=== PATIENT | female | born 1990 | race Caucasian/White ===

== ENCOUNTER 2022-07-13 20:55 | Inpatient (IN) ==
[2022-07-13] MEDS ORDERED: SODIUM CHLORIDE 0.9% 1000ML 2,000 ML IV ONE (21:17)
--- NOTE | 2022-07-13 21:27 | Emergency Department Note ---
Impression & Plan New onset seizure, Hypokalemia ED Provider Note NAME: AUSTIN FULLER AGE: 32 SEX: F : 1990 ARRIVES VIA: Ambulance INFORMANT: Patient ED PROVIDER(S): Jesus Abernathy DO CHIEF COMPLAINT: seizure HPI: Patient is a 32-year-old female that presents to the ER following having a seizure which occurred 30 minutes ago. Earlier today per report from EMS the noted that she had some focal movements of her extremities. She had a tonic-clonic seizure for EMS. She was given 4 of Ativan. Following that she became postictal. She is intermittently moaning and moving her upper and lower extremities per EMS. She is nonfocal. Does have a previous history of drug abuse. History is limited secondary to the patient's mentation. PAST MEDICAL HISTORY:See Below PAST SURGICAL HISTORY:See Below FAMILY HISTORY:See Below SOCIAL HISTORY:See Below HOME MEDICATIONS:See Below ALLERGIES:See Below VITALS:See Below PHYSICAL EXAMINATION: GENERAL: Sitting up in bed, sleeping and opens eyes to sternal rub and says ow. EYE EXAM: normal conjunctiva. PERRL and EOM's intact. OROPHARYNX: no exudate, no erythema, lips, buccal mucosa, and tongue normal and mucous membranes are moist NECK: supple, no nuchal rigidity, no adenopathy, non-tender LUNGS: Clear to auscultation. Normal chest wall mechanics HEART: no murmurs, S1 normal and S2 normal ABDOMEN: abdomen soft, non-tender, normo-active bowel sounds, no masses, no rebound or guarding. UPPER EXTREMITIES: upper extremities are grossly normal. LOWER EXTREMITIES: No pitting edema. NEURO EXAM: Sleeping but opens eyes to sternal rub and screams at all. Moves all extremities. Nonfocal. MEDICAL DECISION MAKING: Patient is a 32-year-old female who presents ER for above-stated complaint. IV was established blood work was obtained. External records were reviewed from EMS. Labs show no significant leukocytosis or anemia. BMP with mild hypokalemia 3.4. LFTs bilirubin and lipase is unremarkable. hCG was negative. COVID-negative. Troponin negative. EKG was nondiagnostic. CT of the head showed no acute pathology. Patient was given 2 g of Keppra here. I discussed the case with Dr. York from neurology. As the patient had protracted seizure and some twitching of the arms previously we discussed the case with the hospitalist for further observation. I did update the at bedside. Obtain history from the as well. Patient resting comfortably while in the ER. Triage Nursing notes reviewed. Limited review of prior medical records performed Vital Signs: reviewed and remarkable for tachy Differential diagnosis: Differential diagnosis includes etiologies such as infection, hypoglycemia, electrolyte abnormalities, cardiac sources, intracerebral event, trauma, toxicologic, neurologic, as well as others were entertained. ER treatment provided: See below Diagnostics interpreted by me include EKG and cardiac monitoring as listed below: -Cardiac Monitoring: An order was placed for continuous cardiac monitoring. The monitor shows a rate of 101 with sinus rhythm. -ECG: Sinus rhythm rate 80 Normal axis No PVCs QTc 438 -Laboratory studies:Interpreted by me as stated above in MDM and shown below. Imaging studies: Xrays: As interpreted by me: Portable AP upright 1 view of the chest shows no pneumonia CTs show: CT head was negative Consultation(s): As described in MDM discussed with neurology and the hospitalist Dr. Blanca for further evaluation management treat Procedures:none Critical Care: None Past Med/Surg History Social History Smoking Status: Unknown if ever smoked Preferred Language: Mongolian Allergies Allergies Allergy/AdvReac Type Severity Reaction Status Date / Time No Known Allergies Allergy Unverified 07/13/22 23:06 Home Meds Home Medications Medication Instructions Recorded Confirmed Nausea Pill 0 mg PO DIRECTED PRN Nausea 07/13/22 07/13/22 cephalexin 250 mg tablet 0 mg PO TID 07/13/22 07/13/22 methocarbamol 500 mg tablet 0 mg PO DIRECTED PRN muscle 07/13/22 07/13/22 spasms Results & Data (ED) Vital Signs Vital Signs - 24 hr 07/13/22 21:03 07/13/22 20:45 07/13/22 20:45 Temperature Temperature Source Pulse Rate 109 H Respiratory Rate Respiratory Depth Respiratory Pattern Blood Pressure Blood Pressure Mean Pulse Oximetry 97 97 Oxygen Delivery Method Room Air Room Air Sepsis Recent Fever Within 48 Hours Sepsis New/Unexplained Change in Mental Status Sepsis Action Taken by Nursing 07/13/22 20:45 07/13/22 20:45 07/13/22 21:12 Temperature 37 C Temperature Source Axillary Pulse Rate 84 Respiratory Rate 34 H Respiratory Depth Shallow Respiratory Pattern Rapid/Shallow Blood Pressure 134/94 Blood Pressure Mean 107 Pulse Oximetry 100 98 98 Oxygen Delivery Method Room Air Room Air Room Air Sepsis Recent Fever Within 48 Hours No Sepsis New/Unexplained Change in Mental Status N/A Sepsis Action Taken by Nursing No Action Required 07/13/22 21:12 07/13/22 21:15 07/13/22 21:37 Temperature Temperature Source Pulse Rate 78 76 77 Respiratory Rate 22 25 H 22 Respiratory Depth Respiratory Pattern Blood Pressure 159/90 H 150/101 H Blood Pressure Mean 113 117 Pulse Oximetry 100 98 98 Oxygen Delivery Method Room Air Room Air Room Air Sepsis Recent Fever Within 48 Hours Sepsis New/Unexplained Change in Mental Status Sepsis Action Taken by Nursing 07/13/22 21:45 07/13/22 22:00 07/13/22 22:16 Temperature Temperature Source Pulse Rate 83 84 89 Respiratory Rate 24 16 17 Respiratory Depth Respiratory Pattern Blood Pressure 222/127 H 176/126 H 211/106 H Blood Pressure Mean 158 142 141 Pulse Oximetry 98 93 98 Oxygen Delivery Method Room Air Room Air Room Air Sepsis Recent Fever Within 48 Hours Sepsis New/Unexplained Change in Mental Status Sepsis Action Taken by Nursing 07/13/22 22:30 07/13/22 22:45 07/13/22 23:00 Temperature Temperature Source Pulse Rate 80 84 81 Respiratory Rate 14 19 17 Respiratory Depth Respiratory Pattern Blood Pressure 193/97 H 188/86 H 182/83 H Blood Pressure Mean 129 120 116 Pulse Oximetry 98 96 96 Oxygen Delivery Method Room Air Room Air Room Air Sepsis Recent Fever Within 48 Hours Sepsis New/Unexplained Change in Mental Status Sepsis Action Taken by Nursing 07/13/22 23:15 07/13/22 23:30 07/14/22 00:00 Temperature Temperature Source Pulse Rate 81 80 71 Respiratory Rate 18 12 15 Respiratory Depth Respiratory Pattern Blood Pressure 177/82 H 183/92 H Blood Pressure Mean 113 122 Pulse Oximetry 96 97 96 Oxygen Delivery Method Room Air Room Air Room Air Sepsis Recent Fever Within 48 Hours Sepsis New/Unexplained Change in Mental Status Sepsis Action Taken by Nursing 07/14/22 00:01 07/14/22 00:30 07/14/22 00:45 Temperature Temperature Source Pulse Rate 81 74 76 Respiratory Rate 20 8 L 14 Respiratory Depth Respiratory Pattern Blood Pressure 158/110 H 152/98 H 157/102 H Blood Pressure Mean 126 116 120 Pulse Oximetry 97 97 96 Oxygen Delivery Method Room Air Room Air Room Air Sepsis Recent Fever Within 48 Hours Sepsis New/Unexplained Change in Mental Status Sepsis Action Taken by Nursing Laboratory Data 07/13/22 21:06 07/13/22 21:06 Lab Results 07/13/22 07/13/22 07/13/22 Range/Units 21:06 21:06 21:06 WBC 6.80 (4.8-10.8) K/ul RBC 4.66 (4.20-5.40) M/uL Hgb 12.7 (12.0-16.0) g/dl Hct 38.2 (37.0-47.0) % MCV 82.0 (80.0-100.0) fL MCH 27.3 (25.0-34.0) pg MCHC 33.2 (32.0-36.0) g/dL RDW Std Deviation 39.9 (36.4-46.3) fL RDW Coeff of Quintin 13.4 (11.5-14.5) % Plt Count 264 (130-400) K/uL MPV 9.8 (9.4-12.4) fL Immature Gran % (Auto) 0.3 % Neut % (Auto) 61.8 % Lymph % (Auto) 28.7 % Meagher % (Auto) 7.8 % Eos % (Auto) 1.0 % Baso % (Auto) 0.4 % Neut # (Auto) 4.20 (1.40-6.50) K/uL Lymph # (Auto) 1.95 (1.2-3.4) K/uL Meagher # (Auto) 0.53 (0.11-0.59) K/uL Eos # (Auto) 0.07 (0-0.50) K/uL Baso # (Auto) 0.03 (0-0.2) K/uL Immature Gran # (Auto) 0.02 (0.01-0.20) K/uL Sodium 140 (136-145) mmol/L Potassium 3.4 L (3.5-5.1) mmol/L Chloride 108 H (98-107) mmol/L Carbon Dioxide 21 (21-32) mmol/L Anion Gap 11 (3-11) BUN 12 (6-23) mg/dl Creatinine 0.77 (0.6-1.2) mg/dl Est Cr Clr Drug Dosing Not Reportable Est GFR ( Amer) 120.1 ml/min Est GFR (Non-Af Amer) 103.6 ml/min BUN/Creatinine Ratio 15.6 (10-20) Glucose 103 H (70-99(Fasting)) mg/dl Calcium 9.9 (8.6-10.3) mg/dl Total Bilirubin 0.6 (0.2-1.0) mg/dl AST 14 (13-39) U/L ALT 11 (7-52) U/L Alkaline Phosphatase 60 (34-104) U/L Troponin I High Sens 3.7 (0-14) pg/ml Total Protein 7.7 (6.0-8.3) gm/dl Albumin 4.3 (3.4-5.0) gm/dl Globulin 3.4 (2.5-4.0) gm/dl Albumin/Globulin Ratio 1.3 (0.9-2) Lipase 24 (11-82) U/L HCG, Qual Negative (Negative) SARS-CoV-2, RNA, NAAT (NEGATIVE) 07/13/22 Range/Units 22:15 WBC (4.8-10.8) K/ul RBC (4.20-5.40) M/uL Hgb (12.0-16.0) g/dl Hct (37.0-47.0) % MCV (80.0-100.0) fL MCH (25.0-34.0) pg MCHC (32.0-36.0) g/dL RDW Std Deviation (36.4-46.3) fL RDW Coeff of Quintin (11.5-14.5) % Plt Count (130-400) K/uL MPV (9.4-12.4) fL Immature Gran % (Auto) % Neut % (Auto) % Lymph % (Auto) % Meagher % (Auto) % Eos % (Auto) % Baso % (Auto) % Neut # (Auto) (1.40-6.50) K/uL Lymph # (Auto) (1.2-3.4) K/uL Meagher # (Auto) (0.11-0.59) K/uL Eos # (Auto) (0-0.50) K/uL Baso # (Auto) (0-0.2) K/uL Immature Gran # (Auto) (0.01-0.20) K/uL Sodium (136-145) mmol/L Potassium (3.5-5.1) mmol/L Chloride (98-107) mmol/L Carbon Dioxide (21-32) mmol/L Anion Gap (3-11) BUN (6-23) mg/dl Creatinine (0.6-1.2) mg/dl Est Cr Clr Drug Dosing Est GFR ( Amer) ml/min Est GFR (Non-Af Amer) ml/min BUN/Creatinine Ratio (10-20) Glucose (70-99(Fasting)) mg/dl Calcium (8.6-10.3) mg/dl Total Bilirubin (0.2-1.0) mg/dl AST (13-39) U/L ALT (7-52) U/L Alkaline Phosphatase (34-104) U/L Troponin I High Sens (0-14) pg/ml Total Protein (6.0-8.3) gm/dl Albumin (3.4-5.0) gm/dl Globulin (2.5-4.0) gm/dl Albumin/Globulin Ratio (0.9-2) Lipase (11-82) U/L HCG, Qual (Negative) SARS-CoV-2, RNA, NAAT NEGATIVE (NEGATIVE) Administered Medications Discontinued Medications Levetiracetam 2,000 mg/ Sodium (Chloride) 270 mls @ 999 mls/hr IV NOW STA Stop: 07/13/22 21:33 Last Infusion: 07/13/22 22:16 Dose: 0 mls/hr Documented By: Admin: 07/13/22 21:58 Dose: 999 mls/hr Documented By: KRISH Sodium Chloride (Nss 1000ml) 2,000 mls @ 999 mls/hr IV .Q2H1M ONE Stop: 07/13/22 23:17 Last Infusion: 07/13/22 23:46 Dose: 0 mls/hr Documented By: Admin: 07/13/22 21:58 Dose: 999 mls/hr Documented By: KRISH Imaging Data Radiologist's Impression: Head CT 07/13/22 21:18 Exam(s): CT HEAD Without Contrast EXAM: CT Head Without Intravenous Contrast CLINICAL HISTORY: Reason for exam: seizure. TECHNIQUE: Axial computed tomography images of the head/brain without intravenous contrast. CTDI is 35.65 mGy and DLP is 703.85 mGy-cm. Automated exposure control was utilized for the study. A dose lowering technique was utilized adhering to the principles of ALARA. COMPARISON: No relevant prior studies available. FINDINGS: No acute intracranial hemorrhage. No midline shift or mass effect. The territorial mondragon-white matter differentiation is maintained throughout. The ventricles and sulci are commensurate with age. The visualized orbits appear grossly unremarkable. The calvarium is intact. The visualized paranasal sinuses and mastoid air cells are grossly clear. IMPRESSION: No acute intracranial hemorrhage, midline shift, or mass effect. Electronically signed by: Ezequiel Schafer MD 07/13/22 22:47 PM Discharge Plan Visit Data Chief Complaint: Seizure Stated Complaint: SEIZURES ED Provider: Jesus Abernathy Discharge Problem: New onset seizure, Hypokalemia Forms Stand Alone Forms: [facility] Prescriptions Prescriptions: No Action methocarbamol 500 mg Tablet 0 mg PO DIRECTED PRN (Reason: muscle spasms) cephalexin 250 mg Tablet 0 mg PO TID Nausea Pill 0 mg PO DIRECTED PRN (Reason: Nausea) Referrals Referrals: PCP,NO [Primary Care Provider] -
[2022-07-13 21:45] LABS: Basophils # (auto) 0.03 K/uL (0-0.2); Basophils % (auto) 0.4 %; Eosinophils # (auto) 0.07 K/uL (0-0.50); Hematocrit (blood only) 38.2 % (37.0-47.0); Hemoglobin 12.7 g/dl (12.0-16.0); Immature Granulocytes # (auto) 0.02 K/uL (0.01-0.20); Immature Granulocytes % (auto) 0.3 %; Lymphocytes # (auto) 1.95 K/uL (1.2-3.4); Lymphocytes % (auto) 28.7 %; Mean Corpuscular Hemoglobin 27.3 pg (25.0-34.0); Mean Corpuscular Hgb Conc 33.2 g/dL (32.0-36.0); Mean Platelet Volume 9.8 fL (9.4-12.4); Monocytes # (auto) 0.53 K/uL (0.11-0.59); Monocytes % (auto) 7.8 %; Neutrophils % (auto) 61.8 %; Platelet Count 264 K/uL (130-400); RDW Coefficient of Variation 13.4 % (11.5-14.5); RDW Standard Deviation 39.9 fL (36.4-46.3); Red Blood Count 4.66 M/uL (4.20-5.40)
[2022-07-13 21:47] LABS: Alanine Aminotransferase 11 U/L (7-52); Albumin Globulin Ratio 1.3 (0.9-2); Albumin Level 4.3 gm/dl (3.4-5.0); Alkaline Phosphatase 60 U/L (34-104); Anion Gap 11 (3-11); Aspartate Aminotransferase 14 U/L (13-39); BUN Creatinine Ratio 15.6 (10-20); Bilirubin,Total 0.6 mg/dl (0.2-1.0); Blood Urea Nitrogen 12 mg/dl (6-23); Calcium 9.9 mg/dl (8.6-10.3); Carbon Dioxide 21 mmol/L (21-32); Chloride 108 mmol/L (98-107); Est GFR (African American) 120.1 ml/min; Est GFR (Non-African American) 103.6 ml/min; Globulin 3.4 gm/dl (2.5-4.0); Glucose 103 mg/dl (70-99(Fasting)); Lipase 24 U/L (11-82); Potassium 3.4 mmol/L (3.5-5.1); Sodium 140 mmol/L (136-145); Total Protein 7.7 gm/dl (6.0-8.3)
[2022-07-13 21:53] LABS: Troponin I High Sensitivity 3.7 pg/ml (0-14)
[2022-07-13 22:04] LABS: Pregnancy Test, Serum Negative (Negative)
--- NOTE | 2022-07-13 22:48 | CT Scan Report ---
Exam(s): CT HEAD Without Contrast EXAM: CT Head Without Intravenous Contrast CLINICAL HISTORY: Reason for exam: seizure. TECHNIQUE: Axial computed tomography images of the head/brain without intravenous contrast. CTDI is 35.65 mGy and DLP is 703.85 mGy-cm. Automated exposure control was utilized for the study. A dose lowering technique was utilized adhering to the principles of ALARA. COMPARISON: No relevant prior studies available. FINDINGS: No acute intracranial hemorrhage. No midline shift or mass effect. The territorial mondragon-white matter differentiation is maintained throughout. The ventricles and sulci are commensurate with age. The visualized orbits appear grossly unremarkable. The calvarium is intact. The visualized paranasal sinuses and mastoid air cells are grossly clear. IMPRESSION: No acute intracranial hemorrhage, midline shift, or mass effect. Electronically signed by: Ezequiel Schafer MD 07/13/22 22:47 PM
[2022-07-14 03:35] LABS: Appearance Urine Clear (Clear); Bilirubin Urine Negative (Negative); Blood Urine Negative (Negative); Color Urine Yellow; Glucose Urine UA Negative (Negative); Ketones Urine Negative (Negative); Leukocyte Esterase Urine Negative (Negative); Nitrite Urine Negative (Negative); Protein Urine Negative (Negative); Specific Gravity Urine 1.012 (1.000-1.030); Urobilinogen Urine Negative (Negative)
[2022-07-14] MEDS ORDERED: ACETAMINOPHEN 325 MG TAB PO PRN (03:35)
[2022-07-14 05:35] LABS: Amphetamines+Metham, Urine Neg (Neg); Barbiturates, Urine Neg (Neg); Benzodiazepine, Urine Neg (Neg); Cocaine, Urine Neg (Neg); MDMA (Ecstacy), Urine Neg (Neg); Methadone, Urine Neg (Neg); Opiate, Urine Neg (Neg); Phencyclidine, Urine Neg (Neg)
--- NOTE | 2022-07-14 06:07 | History & Physical Report ---
Date of Service July 14, 2022 Assessment & Plan (1) New onset seizure: Plan: Patient brought into ED by EMS with tonic-clonic seizures. Patient was given 4 mg of Ativan by EMS with resolution of the seizures and the patient has been postictal since presentation. Patient arousable but somnolent and nonfocal on physical exam Neurology contacted from ED and patient given 2 g of Keppra IV based on neurology recommendation. Further dosing of anticonvulsants based on neurology consultation. Follow urine drug screen check TSH level (2) Hypokalemia: Plan: Patient found to have serum potassium of 3.4 in the ED. Replete potassium and recheck levels in a.m. (3) Drug abuse in remission: Plan: As per ED report and history obtained from , patient has history of drug abuse in the past but presently in remission. Obtain urine drug screen Admission and Anticipated Discharge Date Admission Date: July 14, 2022 History of Present Illness Chief Complaint: Patient presents to ED with complaints of seizures Primary Care Provider: NO PCP This is a 32-year-old female with past medical history significant for history of past drug abuse who presents to the emergency department brought in by EMS with complaints of tonic-clonic seizures. Patient was reported to that seizure episode by her and subsequently EMS was called and patient was noted to have a tonic-clonic seizure by EMS who gave her 4 mg of Ativan and patient had subsequently became postictal when she was brought to the ED for further evaluation. Patient at the time my evaluation is arousable but quickly drifts back to sleep. Based on the history obtained from her patient is not actively using drugs at this time. History is limited to chart review and 's input as patient is postictal and somnolent at this time. Neurology was contacted from ED and 2 g of Keppra was given to the patient for seizure prophylaxis. CT of the head was obtained that did not show any evidence of mass or midline shift. 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 Review of Systems Review of Systems: Review of system limited as patient is somnolent Patient presents with tonic-clonic seizures No chest pain or shortness of breath noted Physical Exam Physical Exam: Head and ENT no thyroid enlargement trachea midline Cardiovascular S1-S2 are normal no S3 Lungs bilateral air entry fair no wheezing Abdomen soft nondistended positive bowel sounds no rebound tenderness Extremity shows trace edema Neurologically patient's somnolent but arousable moves all 4 extremities Skin shows no rash no cyanosis Results & Data Results & Data Vital Signs (Past 12 Hours) Vital Signs Temp Pulse Resp BP BP Pulse Ox O2 Del Method 07/14/22 03:30 92 H 07/14/22 03:14 36.7 C 20 137/84 96 Room Air 07/14/22 03:13 36.7 C 15 137/84 97 Room Air 07/14/22 02:32 58 L 14 203/136 H 100 Room Air 07/14/22 02:30 59 L 15 100 Room Air 07/14/22 02:00 75 19 97 Room Air 07/14/22 01:30 62 15 98 07/14/22 01:16 67 14 188/155 H 99 Room Air 07/14/22 01:00 84 16 95 Room Air 07/14/22 01:05 68 07/14/22 00:45 76 14 157/102 H 96 Room Air 07/14/22 00:30 74 8 L 152/98 H 97 Room Air 07/14/22 00:01 81 20 158/110 H 97 Room Air 07/14/22 00:00 71 15 96 Room Air 07/13/22 23:30 80 12 183/92 H 97 Room Air 07/13/22 23:15 81 18 177/82 H 96 Room Air 07/13/22 23:00 81 17 182/83 H 96 Room Air 07/13/22 22:45 84 19 188/86 H 96 Room Air 07/13/22 22:30 80 14 193/97 H 98 Room Air 07/13/22 22:16 89 17 211/106 H 98 Room Air 07/13/22 22:00 84 16 176/126 H 93 Room Air 07/13/22 21:45 83 24 222/127 H 98 Room Air 07/13/22 21:37 77 22 98 Room Air 07/13/22 21:15 76 25 H 150/101 H 98 Room Air 07/13/22 21:12 78 22 159/90 H 100 Room Air 07/13/22 21:12 98 Room Air 07/13/22 20:45 98 Room Air 07/13/22 20:45 37 C 84 34 H 134/94 100 Room Air 07/13/22 20:45 97 Room Air 07/13/22 20:45 97 Room Air 07/13/22 21:03 109 H Laboratory Results Short CBC 07/13/22 Range/Units 21:06 WBC 6.80 (4.8-10.8) K/ul Hgb 12.7 (12.0-16.0) g/dl Hct 38.2 (37.0-47.0) % Plt Count 264 (130-400) K/uL BMP 07/13/22 21:06 Sodium 140 Potassium 3.4 L Chloride 108 H Carbon Dioxide 21 BUN 12 Creatinine 0.77 Glucose 103 H Calcium 9.9 Liver Function 07/13/22 Range/Units 21:06 Total Bilirubin 0.6 (0.2-1.0) mg/dl AST 14 (13-39) U/L ALT 11 (7-52) U/L Alkaline Phosphatase 60 (34-104) U/L Albumin 4.3 (3.4-5.0) gm/dl Urine 07/13/22 Range/Units 03:28 Urine Color Yellow Urine Appearance Clear (Clear) Urine pH 6.0 (4.5-7.5) Ur Specific Lovell 1.012 (1.000-1.030) Urine Protein Negative (Negative) Urine Glucose (UA) Negative (Negative) Diagnostic Findings Chest X-Ray 07/13/22 21:12 XR chest 1V portable HISTORY: 32 years-old Female Chest pain, nonspecific COMPARISON: None TECHNIQUE: AP view of the chest FINDINGS: Cardiomediastinal and hilar silhouettes are within normal limits. No pneumothorax, pleural effusion, airspace consolidation or pulmonary edema. Hypoinflation. Bones appear grossly intact. IMPRESSION: Hypoinflation without acute process of the chest. ACT 112: Negative or not required by law. The above report was generated using voice recognition software. It may contain grammatical, syntax or spelling errors. Electronically signed by: Wicho Schwab M.D. 07/14/2022 7:[address] 07/13/22 21:18 Exam(s): CT HEAD Without Contrast EXAM: CT Head Without Intravenous Contrast CLINICAL HISTORY: Reason for exam: seizure. TECHNIQUE: Axial computed tomography images of the head/brain without intravenous contrast. CTDI is 35.65 mGy and DLP is 703.85 mGy-cm. Automated exposure control was utilized for the study. A dose lowering technique was utilized adhering to the principles of ALARA. COMPARISON: No relevant prior studies available. FINDINGS: No acute intracranial hemorrhage. No midline shift or mass effect. The territorial mondragon-white matter differentiation is maintained throughout. The ventricles and sulci are commensurate with age. The visualized orbits appear grossly unremarkable. The calvarium is intact. The visualized paranasal sinuses and mastoid air cells are grossly clear. IMPRESSION: No acute intracranial hemorrhage, midline shift, or mass effect. Electronically signed by: Ezequiel Schafer MD 07/13/22 22:47 PM Code Status & VTE Plan VTE Prophylaxis Plan VTE Prophylaxis will be ordered: Yes PG Care Time/CCT Total # of Minutes Spent Total Time Spent with Patient: Total time spent is greater than 50% in coordination of care (as documented) at patient's floor/unit and/or counseling patient: Coding Level of Care Code None Diagnoses New onset seizure R56.9 Hypokalemia E87.6 Drug abuse in remission F19.11
--- NOTE | 2022-07-14 06:41 | Electrocardiogram Report ---
Test Reason : Blood Pressure : / mmHG Vent. Rate : 080 BPM Atrial Rate : 080 BPM P-R Int : 154 ms QRS Dur : 084 ms QT Int : 380 ms P-R-T Axes : 042 035 031 degrees QTc Int : 438 ms Normal sinus rhythm with sinus arrhythmia Normal ECG No previous ECGs available Confirmed by Saroj Lott ([id number]) on 07/14/2022 6:41:38 AM Referred By: REFERRED SELF Confirmed By:David Lott
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
--- NOTE | 2022-07-14 07:57 | XRay Report ---
XR chest 1V portable HISTORY: 32 years-old Female Chest pain, nonspecific COMPARISON: None TECHNIQUE: AP view of the chest FINDINGS: Cardiomediastinal and hilar silhouettes are within normal limits. No pneumothorax, pleural effusion, airspace consolidation or pulmonary edema. Hypoinflation. Bones appear grossly intact. IMPRESSION: Hypoinflation without acute process of the chest. ACT 112: Negative or not required by law. The above report was generated using voice recognition software. It may contain grammatical, syntax o r spelling errors. Electronically signed by: Wicho Schwab M.D. 07/14/2022 7:55 AM
[2022-07-14 09:00] LABS: Basophils # (auto) 0.03 K/uL (0-0.2); Basophils % (auto) 0.7 %; Eosinophils # (auto) 0.04 K/uL (0-0.50); Eosinophils % (auto) 0.9 %; Immature Granulocytes # (auto) 0.01 K/uL (0.01-0.20); Immature Granulocytes % (auto) 0.2 %; Lymphocytes # (auto) 1.37 K/uL (1.2-3.4); Lymphocytes % (auto) 31.8 %; Mean Corpuscular Hemoglobin 27.8 pg (25.0-34.0); Mean Corpuscular Hgb Conc 33.3 g/dL (32.0-36.0); Mean Corpuscular Volume 83.3 fL (80.0-100.0); Mean Platelet Volume 9.8 fL (9.4-12.4); Monocytes # (auto) 0.35 K/uL (0.11-0.59); Monocytes % (auto) 8.1 %; Neutrophils # (auto) 2.51 K/uL (1.40-6.50); Neutrophils % (auto) 58.3 %; Platelet Count 186 K/uL (130-400); RDW Coefficient of Variation 13.4 % (11.5-14.5); RDW Standard Deviation 40.8 fL (36.4-46.3); Red Blood Count 3.96 M/uL (4.20-5.40); White Blood Count 4.31 K/ul (4.8-10.8)
[2022-07-14 09:17] LABS: BUN Creatinine Ratio 14.5 (10-20); Calcium 8.5 mg/dl (8.6-10.3); Creatinine Clr Calc Pharmacy 160.9 ml/min; Est GFR (African American) 140.2 ml/min; Magnesium 1.9 mg/dl (1.7-2.4); Potassium 3.9 mmol/L (3.5-5.1)
[2022-07-14 09:17] LABS: BUN Creatinine Ratio 14.8 (10-20); Calcium 8.3 mg/dl (8.6-10.3); Creatinine Clr Calc Pharmacy 163.6 ml/min; Est GFR (Non-African American) 121.7 ml/min; Potassium 3.9 mmol/L (3.5-5.1)
--- NOTE | 2022-07-14 10:19 | Neurology Consultation ---
Date of Consultation July 14, 2022 Assessment & Plan (1) New onset seizure: New onset seizure disorder in the setting of recent infection and a history of febrile seizures. 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 Agree with Keppra 500mg BID and outpatient seizure wor kup including EEG and MRI with and without contrast (seizure protocol). She will need close epilepsy follow-up. -- Keppra 500mg BID -- [place] DOT form for driving restriction -- Outpatient routine EEG and MRI brain with and without contrast (seizure protocol) -- Please contact us with any further questions, she will need neuro referral for the next week if possible Telehealth Consultation Telehealth Information Telehealth Information: I performed this visit using a real-time telehealth connection between my location and the patients location ([facility]). After connecting through interactive tele-video, patient was identified by name and date of and/or wristband check.Patient (or authorized healthcare sales representative jewelry) was informed that this was a telemedicine visit and it was being conducted confidentially over secure lines. My office door was closed and no one else was present in the room with me.Patient (or authorized healthcare sales representative jewelry) provided consent to proceed with the visit, expressed an understanding of privacy and security of the telemedicine visit, and gave permission to have a hospital sales representative jewelry in the room in order to assist with the visit and to conduct portions of the visit, as needed. I informed the patient (or authorized healthcare sales representative jewelry) that I reviewed their record and presented the opportunity for them to ask any questions regarding the visit today. The patient agreed to participate. History of Present Illness Reason for Consultation: New onset seizure Requesting Physician: Dr. Wilkinson Attending Physician: Sarah Wilkinson MD History of Present Illness Estephania Alexander is a 32 yo F presenting with a generalized tonic-clonic seizure s/p 4mg ativan and keppra load. She has been difficult to wake up this morning but was awake during my encounter. She reports that she was seen for infection - both a UTI and mouth abscess a week and half ago, and has been on antibiotics as well as anti-nausea medication and muscle relaxants (methocarbamol). Two days ago she reports having a seizure and another yesterday. She describes a gastric sensation before the seizure and has otherwise no recollection of the event. She also reports febrile seizures in childhood but was never on seizure medication in the past. Denies any current drug use. Overall complains primarily of generalized muscle pain and fatigue and a frontal headache. Allergies Allergy/AdvReac Type Severity Reaction Status Date / Time No Known Allergies Allergy Unverified 07/13/22 23:06 Home Medications Medication Instructions Recorded Confirmed Type Nausea Pill 0 mg PO DIRECTED PRN Nausea 07/13/22 07/13/22 History cephalexin 250 mg tablet 0 mg PO TID 07/13/22 07/13/22 History methocarbamol 500 mg tablet 0 mg PO DIRECTED PRN muscle 07/13/22 07/13/22 History spasms Patient History Social History Smoking Status: Unknown if ever smoked Preferred Language: Zambian [employer] Supervisor Required: No Review of Systems +seizure Results & Data Vital Signs (Past 12 Hours) Vital Signs Temp Pulse Pulse Resp BP BP Pulse Ox 07/14/22 07:07 36.7 C 68 18 124/79 98 07/14/22 06:36 36.5 C 62 12 105/61 97 07/14/22 03:30 92 H 07/14/22 03:14 36.7 C 20 137/84 96 07/14/22 03:13 36.7 C 15 137/84 97 07/14/22 02:32 58 L 14 203/136 H 100 07/14/22 02:30 59 L 15 100 07/14/22 02:00 75 19 97 07/14/22 01:30 62 15 98 07/14/22 01:16 67 14 188/155 H 99 07/14/22 01:00 84 16 95 07/14/22 01:05 68 07/14/22 00:45 76 14 157/102 H 96 07/14/22 00:30 74 8 L 152/98 H 97 07/14/22 00:01 81 20 158/110 H 97 07/14/22 00:00 71 15 96 07/13/22 23:30 80 12 183/92 H 97 07/13/22 23:15 81 18 177/82 H 96 07/13/22 23:00 81 17 182/83 H 96 07/13/22 22:45 84 19 188/86 H 96 07/13/22 22:30 80 14 193/97 H 98 07/13/22 22:16 89 17 211/106 H 98 O2 Del Method 07/14/22 07:07 Room Air 07/14/22 06:36 Room Air 07/14/22 03:30 07/14/22 03:14 Room Air 07/14/22 03:13 Room Air 07/14/22 02:32 Room Air 07/14/22 02:30 Room Air 07/14/22 02:00 Room Air 07/14/22 01:30 07/14/22 01:16 Room Air 07/14/22 01:00 Room Air 07/14/22 01:05 07/14/22 00:45 Room Air 07/14/22 00:30 Room Air 07/14/22 00:01 Room Air 07/14/22 00:00 Room Air 07/13/22 23:30 Room Air 07/13/22 23:15 Room Air 07/13/22 23:00 Room Air 07/13/22 22:45 Room Air 07/13/22 22:30 Room Air 07/13/22 22:16 Room Air Laboratory Results Abnormal lab results 07/13/22 07/13/22 07/14/22 Range/Units 03:28 21:06 08:20 WBC 4.31 L (4.8-10.8) K/ul RBC 3.96 L (4.20-5.40) M/uL Hgb 11.0 L (12.0-16.0) g/dl Hct 33.0 L (37.0-47.0) % Potassium 3.4 L (3.5-5.1) mmol/L Chloride 108 H (98-107) mmol/L Glucose 103 H (70-99(Fasting)) mg/dl Calcium (8.6-10.3) mg/dl U Marijuana (THC) Screen Pos H (Neg) 07/14/22 07/14/22 Range/Units 08:20 08:36 WBC (4.8-10.8) K/ul RBC (4.20-5.40) M/uL Hgb (12.0-16.0) g/dl Hct (37.0-47.0) % Potassium (3.5-5.1) mmol/L Chloride 113 H 113 H (98-107) mmol/L Glucose (70-99(Fasting)) mg/dl Calcium 8.5 L 8.3 L (8.6-10.3) mg/dl U Marijuana (THC) Screen (Neg) Diagnostic Findings CT head - unremarkable
[2022-07-14] MEDS ORDERED: levETIRAcetam 500 MG TAB PO SCH (10:45)
[2022-07-14] MEDS: HEPARIN SOD 5,000 UNIT/0.5 ML VIAL SQ SCH ×2 (15:15→20:33)
[2022-07-14] MEDS ORDERED: ONDANSETRON INJ 2 MG/ML 2 ML VIAL IV STA (15:20)
[2022-07-14] MEDS ORDERED: ACETAMINOPHEN 1,000 MG/100 ML VIAL IV STA (15:22)
--- NOTE | 2022-07-14 15:57 | Electrocardiogram Report ---
Test Reason : Blood Pressure : / mmHG Vent. Rate : 063 BPM Atrial Rate : 063 BPM P-R Int : 164 ms QRS Dur : 078 ms QT Int : 444 ms P-R-T Axes : 046 041 048 degrees QTc Int : 454 ms Normal sinus rhythm Normal ECG When compared with ECG of 13-JUL-2022 21:08, No significant change was found Confirmed by Saroj Lott ([id number]) on 07/14/2022 3:57:33 PM Referred By: REFERRED SELF Confirmed By:David Lott
[2022-07-14] MEDS: levETIRAcetam 500 MG in 0.9 % SODIUM CHLORIDE 100 ML IV SCH (16:02)
--- NOTE | 2022-07-14 17:11 | Communication Note ---
Date of Service: July 14, 2022 Neurology Update Was called to see Estephania by the primary team because she began having chest thrusting and grunting episodes that seem to stop with repositioning and reassurance. I was able to see these episodes over televideo and agree they are consistent with psychogenic spasms, not seizure. This specifically calls into question whether or not the episodes that brought her to the hospital were seizures or psychogenic non-epileptic attacks. As she is unable to be discharged in this state, I advised a routine EEG. I would not give any further ativan for these spells. If we can capture psychogenic episodes on EEG because they are so frequent, then we can discharge her without keppra and provide the appropriate psychiatric follow-up.
[2022-07-14 17:17] LABS: Base Excess VBG -0.1 mEq/L; HCO3 VBG 24 mmol/L; Oxygen Saturation VBG 93.2 %; PCO2 VBG 36 mmHg (38-50); PO2 VBG 62 mmHg; pH VBG 7.43 (7.36-7.41)
[2022-07-14] MEDS: ACETAMINOPHEN 1,000 MG/100 ML VIAL IV PRN (23:19)
[2022-07-15] MEDS: levETIRAcetam 500 MG in 0.9 % SODIUM CHLORIDE 100 ML IV SCH (04:14)
[2022-07-15 07:05] LABS: Basophils # (auto) 0.04 K/uL (0-0.2); Basophils % (auto) 0.8 %; Eosinophils # (auto) 0.08 K/uL (0-0.50); Eosinophils % (auto) 1.6 %; Hematocrit (blood only) 36.2 % (37.0-47.0); Hemoglobin 11.7 g/dl (12.0-16.0); Immature Granulocytes # (auto) 0.02 K/uL (0.01-0.20); Immature Granulocytes % (auto) 0.4 %; Lymphocytes # (auto) 1.76 K/uL (1.2-3.4); Lymphocytes % (auto) 34.6 %; Mean Corpuscular Hgb Conc 32.3 g/dL (32.0-36.0); Mean Corpuscular Volume 83.6 fL (80.0-100.0); Mean Platelet Volume 9.8 fL (9.4-12.4); Monocytes # (auto) 0.45 K/uL (0.11-0.59); Monocytes % (auto) 8.8 %; Neutrophils # (auto) 2.74 K/uL (1.40-6.50); Neutrophils % (auto) 53.8 %; Platelet Count 211 K/uL (130-400); RDW Coefficient of Variation 13.2 % (11.5-14.5); RDW Standard Deviation 39.8 fL (36.4-46.3); Red Blood Count 4.33 M/uL (4.20-5.40); White Blood Count 5.09 K/ul (4.8-10.8)
[2022-07-15 07:23] LABS: BUN Creatinine Ratio 12.5 (10-20); Calcium 8.9 mg/dl (8.6-10.3); Creatinine Clr Calc Pharmacy 136.5 ml/min; Est GFR (African American) 130.2 ml/min; Est GFR (Non-African American) 112.4 ml/min; Potassium 3.6 mmol/L (3.5-5.1)
--- NOTE | 2022-07-15 08:07 | Hospitalist Progress Note ---
Date of Service July 15, 2022 Assessment & Plan (1) New onset seizure: (2) Hypokalemia: Plan Estephania Alexander is a 32 year-old female who presented to the ED for a new onset seizure. She was given 4mg IM Ativan from EMS prior to arrival. reports that she had been more tired/not feeling like herself for the past week and had been on Cephalexin for a cyst in her mouth. Last night she started to shiver and speech became slurred/balance worsened and then she started to seize around 6:30pm and this continued on and off until 11pm when EMS was called. She received 4mg IV Ativan from EMS and was given loading dose of Keppra in ED. 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 Previously on Latuda, prior suicide attempts. 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 -Pt had been taking Keflex for mouth abscess. Could consider infection as possible trigger/lowered seizure threshold -However no WBC, HR stable, BP normotensive -ProCal, CRP negative -Electrolytes, magnesium WNL. Will trend daily BMP, CBC Altered Mental Status -Per , patient has had ongoing difficulty with memory, speech, balance since her TBI -Patient today is very somnolent, now 16+ hours since onset of seizure -UDS only positive for marijuana/THC. Remote hx of drug use. -Given AMS, will keep patient NPO until more alert. Ordered speech evaluation. Urinary Retention -Bladder scan showed 1000mL -Gutierrez catheter inserted overnight Diet: NPO VTE Prophylaxis: subQ Heparin Code Status: Full Code Admission and Anticipated Discharge Date Admission Date: July 14, 2022 Review of Systems Review of Systems: As per above Physical Exam Constitutional: + altered mental status and + lethargic Respiratory: normal respiratory effort; no respiratory distress Cardiovascular: Rate/Rhythm: regular rate and regular rhythm Extremities: no edema Musculoskeletal: Extremities: extremities normal to inspection Skin: no rashes, warm and dry Neurologic: moves all extremities Speech / Cognition: + abnormal speech Psychiatric: Eye Contact: + poor eye contact Affect: + flat affect Results & Data Results & Data Vital Signs (Past 12 Hours) Vital Signs Temp Pulse Pulse Resp BP BP Pulse Ox 07/15/22 07:11 36.6 C 51 L 20 99/62 L 97 07/15/22 03:17 36.4 C L 56 L 14 130/82 97 07/14/22 23:00 77 07/14/22 23:10 36.6 C 87 18 124/84 97 O2 Del Method 07/15/22 07:11 Room Air 07/15/22 03:17 Room Air 07/14/22 23:00 07/14/22 23:10 Room Air Resident Activity Tracking Resident Involvement: Resident Care Provided Care Provided: Adult Hospital Medicine
[2022-07-15] MEDS: HEPARIN SOD 5,000 UNIT/0.5 ML VIAL SQ SCH (09:17)
[2022-07-15] MEDS: ACETAMINOPHEN 1,000 MG/100 ML VIAL IV PRN (11:25)
--- NOTE | 2022-07-15 12:12 | Electroencephalogram ---
EEG Procedure Note Date of Service July 15, 2022 Start / End Times Start Time: 09:14 End Time: 09:[address] Wayne Hooper History A 32 year old female with convulsive episodes. EEG performed for evaluation of epileptifor activity. Home Medication List Medication Instructions Recorded Confirmed Type Nausea Pill 0 mg PO DIRECTED PRN Nausea 07/13/22 07/13/22 History cephalexin 250 mg tablet 0 mg PO TID 07/13/22 07/13/22 History methocarbamol 500 mg tablet 0 mg PO DIRECTED PRN muscle 07/13/22 07/13/22 History spasms Inpatient Medication List Heparin Sodium (Porcine) (Heparin Sod 5,000 Unit/0.5 Ml Vial) 5,000 units SQ Q12 ULICES Stop: 08/13/22 08:59 Last Admin: 07/15/22 09:17 Dose: Not Given Documented By: Admin: 07/14/22 20:33 Dose: Not Given Documented By: Admin: 07/14/22 15:15 Dose: Not Given Documented By: WILBER Levetiracetam 500 mg/ Sodium (Chloride) 105 mls @ 420 mls/hr IV Q12H ULICES Stop: 08/13/22 15:59 Last Infusion: 07/15/22 04:34 Dose: 0 mls/hr Documented By: Admin: 07/15/22 04:14 Dose: 420 mls/hr Documented By: Infusion: 07/14/22 16:17 Dose: 0 mls/hr Documented By: Admin: 07/14/22 16:02 Dose: 420 mls/hr Documented By: ZULEYMA Acetaminophen (Ofirmev) 1,000 mg in 100 mls @ 400 mls/hr IV Q8H PRN PRN Reason: Pain Stop: 07/17/22 22:54 Last Admin: 07/15/22 11:25 Dose: 400 mls/hr Documented By: Infusion: 07/14/22 23:36 Dose: 0 mls/hr Documented By: Admin: 07/14/22 23:19 Dose: 400 mls/hr Documented By: ABA Discontinued Medications Levetiracetam 2,000 mg/ Sodium (Chloride) 270 mls @ 999 mls/hr IV NOW STA Stop: 07/13/22 21:33 Last Infusion: 07/13/22 22:16 Dose: 0 mls/hr Documented By: Admin: 07/13/22 21:58 Dose: 999 mls/hr Documented By: KRISH Sodium Chloride (Nss 1000ml) 2,000 mls @ 999 mls/hr IV .Q2H1M ONE Stop: 07/13/22 23:17 Last Infusion: 07/13/22 23:46 Dose: 0 mls/hr Documented By: Admin: 07/13/22 21:58 Dose: 999 mls/hr Documented By: KRISH Acetaminophen (Ofirmev) 1,000 mg in 100 mls @ 400 mls/hr IV NOW STA Stop: 07/14/22 15:36 Last Infusion: 07/14/22 17:02 Dose: 0 mls/hr Documented By: Admin: 07/14/22 16:47 Dose: 400 mls/hr Documented By: WILBER Levetiracetam (Levetiracetam 500 Mg Tab) 500 mg PO BID ULICES Stop: 08/13/22 10:44 Last Admin: 07/14/22 15:16 Dose: Not Given Documented By: WILBER Ondansetron HCl (Ondansetron Inj 2 Mg/Ml 2 Ml Vial) 4 mg IV NOW STA Stop: 07/14/22 15:21 Last Admin: 07/14/22 16:47 Dose: 4 mg Documented By: WILBER Description This is a 21 electrode EEG with a single channel dedicated to limited EKG. The electrodes were placed in accordance with the International 10-20 system. REPORT: At the onset of the EEG the patient is in an altered mental state. The background is symmetric. The posterior dominant rhythm is not well seen. The background consist of low amplitude 12-15 Hz beta acivity with some intermixed polymorphic delta activity. No stage II sleep transients are seen. Interpretation IMPRESSION: This is an abnormal routine EEG in a patient with altered mentation due to intermittnet background slowing suggestive of a mild non specific encephalopathy. This may also be medication induced. The excessive beta actvity is a normal variant often secondary to medications ( ie benzodiazepines). No epileptiform activity or electrographic seizures are seen.
--- NOTE | 2022-07-15 12:32 | Communication Note ---
Date of Service: July 15, 2022 Neurology Update: With a negative EEG (excess beta as a lingering effect of ativan), not indicative of underlying electrographic abnormality or cortical irritiability and no abnormal movements captured would err on the side of caution and continue Keppra 500mg BID until seen by neurology as an outpatient. We will sign off, please contact us with any further questions.
[2022-07-15] MEDS ORDERED: KETOROLAC 30 MG/ML VIAL IV ONE (14:10)
--- NOTE | 2022-07-15 16:08 | Discharge Summary ---
Date of Service July 15, 2022 Admission HPI Per Admitting Provider This is a 32-year-old female with past medical history significant for history of past drug abuse who presents to the emergency department brought in by EMS with complaints of tonic-clonic seizures. Patient was reported to that seizure episode by her and subsequently EMS was called and patient was noted to have a tonic-clonic seizure by EMS who gave her 4 mg of Ativan and patient had subsequently became postictal when she was brought to the ED for further evaluation. Patient at the time my evaluation is arousable but quickly drifts back to sleep. Based on the history obtained from her patient is not actively using drugs at this time. History is limited to chart review and 's input as patient is postictal and somnolent at this time. Neurology was contacted from ED and 2 g of Keppra was given to the patient for seizure prophylaxis. CT of the head was obtained that did not show any evidence of mass or midline shift. Admission Exam Per Admitting Provider Head and ENT no thyroid enlargement trachea midline Cardiovascular S1-S2 are normal no S3 Lungs bilateral air entry fair no wheezing Abdomen soft nondistended positive bowel sounds no rebound tenderness Extremity shows trace edema Neurologically patient's somnolent but arousable moves all 4 extremities Skin shows no rash no cyanosis Principal Diagnosis Seizure-Like Activity Discharge Exam Constitutional WD/WN, vitals as above Eyes Anicteric sclerae. Pupils equal, round, and reactive. ENMT External ears and nose normal. Moist mucous membranes. Poor dentition Respiratory normal respiratory effort, lungs clear to auscultation Cardiovascular RRR, no murmur, no edema Gastrointestinal (Abdomen) normal bowel sounds, soft, nontender, no hepatosplenomegaly Skin no rashes, warm and dry Psychiatric A+Ox3, euthymic affect Discharge Data Allergies Allergy/AdvReac Type Severity Reaction Status Date / Time No Known Allergies Allergy Unverified 07/13/22 23:06 Consultations 07/13/22 22:59 ED Decision to Admit Stat 07/14/22 08:29 Consult Neurology Routine Ordered Studies 07/13/22 21:18 CT head/brain wo con Stat Chest X-Ray 07/13/22 21:12 XR chest 1V portable HISTORY: 32 years-old Female Chest pain, nonspecific COMPARISON: None TECHNIQUE: AP view of the chest FINDINGS: Cardiomediastinal and hilar silhouettes are within normal limits. No pneumothorax, pleural effusion, airspace consolidation or pulmonary edema. Hypoinflation. Bones appear grossly intact. IMPRESSION: Hypoinflation without acute process of the chest. ACT 112: Negative or not required by law. The above report was generated using voice recognition software. It may contain grammatical, syntax or spelling errors. Electronically signed by: Wicho Schwab M.D. 07/14/2022 7:[address] 07/13/22 21:18 Exam(s): CT HEAD Without Contrast EXAM: CT Head Without Intravenous Contrast CLINICAL HISTORY: Reason for exam: seizure. TECHNIQUE: Axial computed tomography images of the head/brain without intravenous contrast. CTDI is 35.65 mGy and DLP is 703.85 mGy-cm. Automated exposure control was utilized for the study. A dose lowering technique was utilized adhering to the principles of ALARA. COMPARISON: No relevant prior studies available. FINDINGS: No acute intracranial hemorrhage. No midline shift or mass effect. The territorial mondragon-white matter differentiation is maintained throughout. The ventricles and sulci are commensurate with age. The visualized orbits appear grossly unremarkable. The calvarium is intact. The visualized paranasal sinuses and mastoid air cells are grossly clear. IMPRESSION: No acute intracranial hemorrhage, midline shift, or mass effect. Electronically signed by: Ezequiel Schafer MD 07/13/22 22:47 PM 07/15/22 07/15/22 07/14/22 Range/Units 06:32 06:32 17:30 WBC 5.09 (4.8-10.8) K/ul RBC 4.33 (4.20-5.40) M/uL Hgb 11.7 L (12.0-16.0) g/dl Hct 36.2 L (37.0-47.0) % MCV 83.6 (80.0-100.0) fL MCH 27.0 (25.0-34.0) pg MCHC 32.3 (32.0-36.0) g/dL RDW Std Deviation 39.8 (36.4-46.3) fL RDW Coeff of Quintin 13.2 (11.5-14.5) % Plt Count 211 (130-400) K/uL MPV 9.8 (9.4-12.4) fL Immature Gran % (Auto) 0.4 % Neut % (Auto) 53.8 % Lymph % (Auto) 34.6 % [place] % (Auto) 8.8 % Eos % (Auto) 1.6 % Baso % (Auto) 0.8 % Neut # (Auto) 2.74 (1.40-6.50) K/uL Lymph # (Auto) 1.76 (1.2-3.4) K/uL [place] # (Auto) 0.45 (0.11-0.59) K/uL Eos # (Auto) 0.08 (0-0.50) K/uL Baso # (Auto) 0.04 (0-0.2) K/uL Immature Gran # (Auto) 0.02 (0.01-0.20) K/uL VBG pH (7.36-7.41) VBG pCO2 (38-50) mmHg VBG pO2 mmHg VBG HCO3 mmol/L VBG O2 Saturation % VBG Base Excess mEq/L Sodium 140 (136-145) mmol/L Potassium 3.6 (3.5-5.1) mmol/L Chloride 108 H (98-107) mmol/L Carbon Dioxide 26 (21-32) mmol/L Anion Gap 6 (3-11) BUN 9 (6-23) mg/dl Creatinine 0.72 (0.6-1.2) mg/dl Est Cr Clr Drug Dosing 136.5 ml/min Est GFR ( Amer) 130.2 ml/min Est GFR (Non-Af Amer) 112.4 ml/min BUN/Creatinine Ratio 12.5 (10-20) Glucose 80 (70-99(Fasting)) mg/dl Lactate 0.8 (0.4-2.0) mmol/L Calcium 8.9 (8.6-10.3) mg/dl Prolactin ng/ml 07/14/22 07/14/22 Range/Units 17:30 17:09 WBC (4.8-10.8) K/ul RBC (4.20-5.40) M/uL Hgb (12.0-16.0) g/dl Hct (37.0-47.0) % MCV (80.0-100.0) fL MCH (25.0-34.0) pg MCHC (32.0-36.0) g/dL RDW Std Deviation (36.4-46.3) fL RDW Coeff of Quintin (11.5-14.5) % Plt Count (130-400) K/uL MPV (9.4-12.4) fL Immature Gran % (Auto) % Neut % (Auto) % Lymph % (Auto) % [place] % (Auto) % Eos % (Auto) % Baso % (Auto) % Neut # (Auto) (1.40-6.50) K/uL Lymph # (Auto) (1.2-3.4) K/uL [place] # (Auto) (0.11-0.59) K/uL Eos # (Auto) (0-0.50) K/uL Baso # (Auto) (0-0.2) K/uL Immature Gran # (Auto) (0.01-0.20) K/uL VBG pH 7.43 H (7.36-7.41) VBG pCO2 36 L (38-50) mmHg VBG pO2 62 mmHg VBG HCO3 24 mmol/L VBG O2 Saturation 93.2 % VBG Base Excess -0.1 mEq/L Sodium (136-145) mmol/L Potassium (3.5-5.1) mmol/L Chloride (98-107) mmol/L Carbon Dioxide (21-32) mmol/L Anion Gap (3-11) BUN (6-23) mg/dl Creatinine (0.6-1.2) mg/dl Est Cr Clr Drug Dosing ml/min Est GFR ( Amer) ml/min Est GFR (Non-Af Amer) ml/min BUN/Creatinine Ratio (10-20) Glucose (70-99(Fasting)) mg/dl Lactate (0.4-2.0) mmol/L Calcium (8.6-10.3) mg/dl Prolactin 9.82 ng/ml Hospital Course (1) New onset seizure: (2) Hypokalemia: Guille Estephania Alexander is a 32 year-old female who presented to the ED for a new onset seizure. She was given 4mg IM Ativan from EMS prior to arrival. reports that she had been more tired/not feeling like herself for the past week and had been on Cephalexin for a cyst in her mouth. Last night she started to shiver and speech became slurred/balance worsened and then she started to seize around 6:30pm and this continued on and off until 11pm when EMS was called. She received 4mg IV Ativan from EMS and was given loading dose of Keppra in ED. 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 Previously on Latuda, prior suicide attempts. -Head CT w/o acute abnormalities, midline shift, or mass effect -Neurology consulted. After additional episodes of upper extremity shaking/jerking, Neurologist watched on camera, feels episodes are possibly psychogenic in nature but will continue Keppra for now. -EEG completed, no episodes captured. Study unremarkable for diagnosis of epileptic seizures. -Plan to continue Keppra 500 BID -Outpatient follow up with neurology within 1 week. Consider MRI brain imaging. Recommend follow up with psychiatry to address underlying PTSD. 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 Per , her current license is out of [place]. -Informed patient she should not be operating any motor vehicles. Altered Mental Status -Per , patient has had ongoing difficulty with memory, speech, balance since her TBI -UDS only positive for marijuana/THC. Remote hx of drug use. -Mentation clear on discharge Migraine -Notes history of migraine, previously on Imitrex -Gave IV Toradol. Advised patient to follow up with PCP, use ibuprofen/tylenol as needed Poor dentition -Should have outpatient dental follow up. Total Time Total Time Spent Total Time Spent (In Minutes): . Discharge Plan Discharge Items Patient Disposition: Home - Self-Care Reason For Visit: NEW ONSET SEIZURE Discharge Diagnosis: Possible New Onset Seizure Activity: Per Instructions section Non-emergency contact: Primary Care Provider and Neurologist Call non-emergency contact if: you have any medication questions and your symptoms worsen Follow-up/Referrals: Molina Hamlin, DO [Physician] - (One week follow up with any provider- seen for possible seizure, started on keppra) PCP,NO [Primary Care Provider] - Diet: Regular Addtl Attending Provider Instructions: You were admitted to the hospital for seizure activity. You were treated with Ativan by EMS on transport to the hospital and started on Keppra while in the ED. You were continued on Keppra during your admission. Neurology was consulted and advised to continue the Keppra medication and follow up with a neurologist within one week of discharge. The neurologist was able to view the episodes of upper body jerking and did not feel that they were additional seizures. An EEG was completed which did not show definitive abnormalities suggesting seizure activity. The neurologist expressed concern that these events may not be epileptic in nature, but for now we will prescribe Keppra. You should follow up with neurology within 1 week. We have reached out to a local neurology ([facility]) to request an appointment, but if you are planning to return to [place] it is very important that you call a local neurologist to request an appointment within the next week. We also recommend that you continue to seek care for PTSD after your TBI from mental health care providers. -It is very important that you do not drive any vehicles given the recent seizure. I will be submitting a form to the [facility] regarding concern of your ability to operate a motor vehicle. Follow-up Appointments Make a follow-up appointment with your PCP within the next week. It is very important that you follow up with them shortly after discharge from the hospital. We have requested a follow-up appointment with neurology within one week of discharge. Please call their office if you do not hear from them. Medications Your medication list has been reviewed and reconciled upon discharge to ensure accuracy and continuity of care. An updated list of all your medications is included with your hospital discharge paperwork. Please review this list closely, and make note of any changes. We sent a new medication called Keppra to your pharmacy. Take Keppra 500mg (1 tablet) twice daily. Continue this medication until instructed otherwise by a neurologist. For your migraine headache you received IV Toradol. You were previously on Imitrex but given your possible seizure it would not be recommended to restart this medication at this time. Please discuss this with your neurologist. We recommend taking [id number] ibuprofen or tylenol. CALL 911 OR GO TO THE EMERGENCY DEPARTMENT if you experience any of the following: Sudden, severe abdominal pain or nausea/vomiting Severe chest pain, or chest pain that radiates (moves) to your jaw or arm Sudden, severe shortness of breath or difficulty breathing Thank you for allowing us to participate in your care. Pending Studies at Discharge: No Stand-Alone Forms: My [facility] [employer], Smoking Cessation Medications and DC Order Prescriptions: New levetiracetam [Keppra] 500 mg tablet 500 mg PO BID 14 Days Qty: 28 1RF Discontinued methocarbamol 500 mg Tablet 0 mg PO DIRECTED PRN (Reason: muscle spasms) cephalexin 250 mg Tablet 0 mg PO TID Nausea Pill 0 mg PO DIRECTED PRN (Reason: Nausea) Discharge Orders: Discharge Order (Routine); Ordered 07/15/22 Ordered By: Bel Robles Admission Data Admit Date/Time: 07/14/22 01:24 Attending Provider: Sarah Wilkinson Admit Provider: Markus Grewal Primary Care Provider: PCP,NO Other Providers: Markus Grewal Other Interventions: Discharge Summary Assessment (RN) Last Done: 07/15/22 16:10 Supervising Physician Co-Signing Physician Notes Resident Physician Supervision Note: I independently interviewed and examined the patient and verified the pinon history and physical, reviewed labs and image studies and agree with resident findings and care plan. Resident Activity Tracking Resident Involvement: Resident Care Provided Care Provided: Adult Hospital Medicine
[2022-07-16 14:22] LABS: Marijuana Quant, GCMS Urine 397 ng/mL (<5)
== END 2022-07-15 16:30 | disposition home or self-care (01) | DRG 101 ==
LOC: ED 20:55 → SUATTDRO 07-14 01:24 → 2S 07-14 01:24

== ENCOUNTER 2022-09-02 20:22 | Observation (INO) ==
[2022-09-02] MEDS ORDERED: SODIUM CHLORIDE 0.9% 2,000 ML IV ONE (20:28)
[2022-09-02] MEDS ORDERED: LORazepam 2 MG/1 ML VIAL ONE (20:33)
[2022-09-02] MEDS ORDERED: LEVETIRACETAM IV STA (20:34)
[2022-09-02] MEDS ORDERED: LORazepam 2 MG/1 ML VIAL IV STA (20:34)
[2022-09-02] MEDS ORDERED: SODIUM CHLORIDE 0.9% IV STA (20:34)
--- NOTE | 2022-09-02 20:47 | Emergency Department Note ---
Impression & Plan Status epilepticus, Hypokalemia, Drug abuse in remission ED Provider Note NAME: AUSTIN FULLER AGE: 32 SEX: F : 1990 ARRIVES VIA: Ambulance INFORMANT: Patient ED PROVIDER(S): Jesus Abernathy DO CHIEF COMPLAINT: Seizure HPI: Patient is a 32-year-old female who presents ER with past medical history of drug abuse and epilepsy for seizure. Seizure started about 10 minutes prior to arrival of EMS. Upon arrival of EMS they noted tonic-clonic activity. She was given 4 mg of Ativan. Following this it stopped. She had 2 short seizures following this which abated prior to the administration of medications. History is limited secondary to mentation. PAST MEDICAL HISTORY:See Below PAST SURGICAL HISTORY:See Below FAMILY HISTORY:See Below SOCIAL HISTORY:See Below HOME MEDICATIONS:See Below ALLERGIES:See Below VITALS:See Below PHYSICAL EXAMINATION: GENERAL: Lying in bed opens her eyes to voice and following commands but sluggish EYE EXAM: normal conjunctiva. PERRL and EOM's grossly intact. OROPHARYNX: Dry mucous membranes LUNGS: Clear to auscultation. Normal chest wall mechanics HEART: no murmurs, S1 normal and S2 normal ABDOMEN: abdomen soft, non-tender, normo-active bowel sounds, no masses, no rebound or guarding. BACK: Back is symmetrical on inspection and there is no deformity, no midline tenderness, no CVA tenderness. SKIN: no rashes and no bruising UPPER EXTREMITIES: upper extremities are grossly normal. LOWER EXTREMITIES: No pitting edema. NEURO EXAM: Awake alert oriented to person but not year, weakness in the lower or upper extremities. Unable to perform drift and [id number]. Patient is very sluggish. MEDICAL DECISION MAKING: Patient is a 32-year-old female who presents ER for above-stated complaint. IV was established with obtained. External records reviewed. Labs show no significant leukocytosis or anemia. BMP with mild hypokalemia 3.1. Chloride slightly up at 108. LFTs bilirubin was unremarkable. Troponin was negative. UA does suggest UTI. Patient was given IV Rocephin. COVID was negative. Patient had a short seizure in the ER prior to me being able to evaluate her for this as it was called to bedside. She was given Keppra 40 mg/kg loading dose due to multiple seizures prior to arrival. She was given 2 mg of Ativan while in the ER. She did return to baseline and was answering questions. She was discussed with the hospitalist Dr. French Mendez for further evaluation management treatment. CT head was negative. Triage Nursing notes reviewed. Limited review of prior medical records performed Vital Signs: reviewed and remarkable for no significant abnormalities Differential diagnosis: Differential diagnosis includes etiologies such as infection, hypoglycemia, electrolyte abnormalities, cardiac sources, intracerebral event, trauma, toxicologic, neurologic, as well as others were entertained. ER treatment provided: See below Diagnostics interpreted by me include EKG and cardiac monitoring as listed below: -Cardiac Monitoring: An order was placed for continuous cardiac monitoring. The monitor shows a rate of 80 with sinus rhythm. -ECG: Sinus rhythm rate 76 Normal axis No PVCs QTc 459 -Laboratory studies:Interpreted by me as stated above in MDM and shown below. Imaging studies: Xrays: As interpreted by me:none CTs show: CT head per my review showed no obvious large bleed CT head per radiology showed no acute pathology Consultation(s): As described in [facility] Procedures:none Critical Care: I have personally spent 35 minutes of critical care time in the direct management of this patient. This includes bedside care, interpretation of diagnostic studies, and testing, discussion with consultants, patient, and family members, and other required patient management activities. This 35 minutes is in excess of all separately billable procedures. 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 Feels Safe at Home: Yes Allergies Allergies Allergy/AdvReac Type Severity Reaction Status Date / Time [place] And Derivatives Allergy Hives & gi Verified 09/02/22 21:37 upset Home Meds Home Medications Medication Instructions Recorded Confirmed levetiracetam 500 mg tablet 750 mg PO BID 09/02/22 09/02/22 (Keppra) sumatriptan succinate 50 mg tablet 0 mg PO .COMPLEX 09/02/22 09/02/22 topiramate 25 mg capsule,extended 25 mg PO DAILY 09/02/22 09/02/22 release 24 hr Results & Data (ED) Vital Signs Vital Signs - 24 hr 09/02/22 20:26 09/02/22 20:30 09/02/22 20:51 Temperature 36.9 C Temperature Source Oral Pulse Rate 69 80 Pulse Rate [Apical] 66 Pulse Rhythm Regular Pulse Rhythm [Apical] Regular Pulse Strength Normal Pulse Strength [Apical] Normal Respiratory Rate 18 20 Respiratory Effort / Characteristics Non-Labored Spontaneous Non-Labored Spontaneous Respiratory Depth Normal Normal Respiratory Pattern Regular Regular Blood Pressure 127/80 Blood Pressure [Right Arm] 125/94 Blood Pressure Mean 95 Blood Pressure Mean [Right Arm] 104 Blood Pressure Position Lying Pulse Oximetry 98 100 Oxygen Delivery Method Room Air Non-rebreather Oxygen Flow Rate 15 Sepsis Recent Fever Within 48 Hours No Sepsis New/Unexplained Change in Mental Status No Sepsis Action Taken by Nursing No Action Required 09/02/22 22:15 Temperature Temperature Source Pulse Rate Pulse Rate [Apical] 79 Pulse Rhythm Pulse Rhythm [Apical] Pulse Strength Pulse Strength [Apical] Respiratory Rate 18 Respiratory Effort / Characteristics Respiratory Depth Respiratory Pattern Blood Pressure Blood Pressure [Right Arm] 118/59 L Blood Pressure Mean Blood Pressure Mean [Right Arm] 78 Blood Pressure Position Pulse Oximetry 96 Oxygen Delivery Method Room Air Oxygen Flow Rate Sepsis Recent Fever Within 48 Hours Sepsis New/Unexplained Change in Mental Status Sepsis Action Taken by Nursing Laboratory Data 09/02/22 20:34 09/02/22 20:34 Lab Results 09/02/22 09/02/22 09/02/22 Range/Units 20:31 20:34 20:34 WBC 6.07 (4.8-10.8) K/ul RBC 4.47 (4.20-5.40) M/uL Hgb 12.6 (12.0-16.0) g/dl POC Hgb (12.0-16.0) g/dl Hct 36.5 L (37.0-47.0) % POC Hct (37-47) % MCV 81.7 (80.0-100.0) fL MCH 28.2 (25.0-34.0) pg MCHC 34.5 (32.0-36.0) g/dL RDW Std Deviation 39.4 (36.4-46.3) fL RDW Coeff of Quintin 13.2 (11.5-14.5) % Plt Count 218 (130-400) K/uL MPV 9.6 (9.4-12.4) fL Immature Gran % (Auto) 0.2 % Neut % (Auto) 64.1 % Lymph % (Auto) 27.8 % [place] % (Auto) 6.6 % Eos % (Auto) 1.0 % Baso % (Auto) 0.3 % Neut # (Auto) 3.89 (1.40-6.50) K/uL Lymph # (Auto) 1.69 (1.2-3.4) K/uL [place] # (Auto) 0.40 (0.11-0.59) K/uL Eos # (Auto) 0.06 (0-0.50) K/uL Baso # (Auto) 0.02 (0-0.2) K/uL Immature Gran # (Auto) 0.01 (0.01-0.20) K/uL POC Sodium (135-144) mmol/L Sodium 139 (136-145) mmol/L POC Potassium (3.3-5.0) mmol/L Potassium 3.1 L (3.5-5.1) mmol/L POC Chloride (101-112) mmol/L Chloride 108 H (98-107) mmol/L Carbon Dioxide 23 (21-32) mmol/L POC Total CO2 (24-31) mmol/L Anion Gap 8 (3-11) POC Anion Gap (16-25) mmol/L POC BUN (7-18) mg/dl BUN 5 L (6-23) mg/dl Creatinine 0.73 (0.6-1.2) mg/dl POC Creatinine (0.6-1.3) mg/dl Est Cr Clr Drug Dosing 136.7 ml/min Est GFR ( Amer) 128.1 ml/min Est GFR (Non-Af Amer) 110.5 ml/min BUN/Creatinine Ratio 6.8 L (10-20) Glucose 80 (70-99(Fasting)) mg/dl POC Glucose 84 (70-99) mg/dl POC Glucose (other) (70-99) mg/dl Calcium 9.1 (8.6-10.3) mg/dl POC Ioniz Calcium Cal (1.12-1.32) mmol/l Magnesium 1.8 (1.7-2.4) mg/dl Total Bilirubin 0.9 (0.2-1.0) mg/dl AST 14 (13-39) U/L ALT 9 (7-52) U/L Alkaline Phosphatase 53 (34-104) U/L Troponin I High Sens < 2.3 (0-14) pg/ml Total Protein 7.3 (6.0-8.3) gm/dl Albumin 4.4 (3.4-5.0) gm/dl Globulin 2.9 (2.5-4.0) gm/dl Albumin/Globulin Ratio 1.5 (0.9-2) Urine Color Urine Appearance (Clear) Urine pH (4.5-7.5) Ur Specific [place] (1.000-1.030) Urine Protein (Negative) Urine Glucose (UA) (Negative) Urine Ketones (Negative) Urine Blood (Negative) Urine Nitrite (Negative) Urine Bilirubin (Negative) Urine Urobilinogen (Negative) Ur Leukocyte Esterase (Negative) Urine WBC (Auto) (0-5) /hpf Urine RBC (Auto) (0-4) /hpf U Hyaline Cast (Auto) (0-5) /lpf U Epithel Cells (Auto) (0-5) /lpf Urine Bacteria (Auto) (Negative) POC Ur Test (NEG) Urine Opiates Screen (Neg) Ur Methadone, Qual (Neg) Urine Barbiturates (Neg) Ur Phencyclidine (PCP) (Neg) U Amphetamin/Meth Scrn (Neg) MDMA (Ecstasy) Screen (Neg) U Benzodiazepines Scrn (Neg) Ur Cocaine Metabolite (Neg) U Marijuana (THC) Screen (Neg) SARS-CoV-2, RNA, NAAT (NEGATIVE) 09/02/22 09/02/22 09/02/22 Range/Units 20:42 21:00 21:00 WBC (4.8-10.8) K/ul RBC (4.20-5.40) M/uL Hgb (12.0-16.0) g/dl POC Hgb 12.9 (12.0-16.0) g/dl Hct (37.0-47.0) % POC Hct 38 (37-47) % MCV (80.0-100.0) fL MCH (25.0-34.0) pg MCHC (32.0-36.0) g/dL RDW Std Deviation (36.4-46.3) fL RDW Coeff of Quintin (11.5-14.5) % Plt Count (130-400) K/uL MPV (9.4-12.4) fL Immature Gran % (Auto) % Neut % (Auto) % Lymph % (Auto) % [place] % (Auto) % Eos % (Auto) % Baso % (Auto) % Neut # (Auto) (1.40-6.50) K/uL Lymph # (Auto) (1.2-3.4) K/uL [place] # (Auto) (0.11-0.59) K/uL Eos # (Auto) (0-0.50) K/uL Baso # (Auto) (0-0.2) K/uL Immature Gran # (Auto) (0.01-0.20) K/uL POC Sodium 141 (135-144) mmol/L Sodium (136-145) mmol/L POC Potassium 3.0 L (3.3-5.0) mmol/L Potassium (3.5-5.1) mmol/L POC Chloride 106 (101-112) mmol/L Chloride (98-107) mmol/L Carbon Dioxide (21-32) mmol/L POC Total CO2 22 L (24-31) mmol/L Anion Gap (3-11) POC Anion Gap 17.0 (16-25) mmol/L POC BUN 3 L (7-18) mg/dl BUN (6-23) mg/dl Creatinine (0.6-1.2) mg/dl POC Creatinine 0.6 (0.6-1.3) mg/dl Est Cr Clr Drug Dosing ml/min Est GFR ( Amer) ml/min Est GFR (Non-Af Amer) ml/min BUN/Creatinine Ratio (10-20) Glucose (70-99(Fasting)) mg/dl POC Glucose (70-99) mg/dl POC Glucose (other) 81 (70-99) mg/dl Calcium (8.6-10.3) mg/dl POC Ioniz Calcium Cal 1.16 (1.12-1.32) mmol/l Magnesium (1.7-2.4) mg/dl Total Bilirubin (0.2-1.0) mg/dl AST (13-39) U/L ALT (7-52) U/L Alkaline Phosphatase (34-104) U/L Troponin I High Sens (0-14) pg/ml Total Protein (6.0-8.3) gm/dl Albumin (3.4-5.0) gm/dl Globulin (2.5-4.0) gm/dl Albumin/Globulin Ratio (0.9-2) Urine Color Yellow Urine Appearance Clear (Clear) Urine pH 6.5 (4.5-7.5) Ur Specific [place] 1.009 (1.000-1.030) Urine Protein Negative (Negative) Urine Glucose (UA) Negative (Negative) Urine Ketones Negative (Negative) Urine Blood Trace H (Negative) Urine Nitrite Negative (Negative) Urine Bilirubin Negative (Negative) Urine Urobilinogen Negative (Negative) Ur Leukocyte Esterase 1+ H (Negative) Urine WBC (Auto) >30 H (0-5) /hpf Urine RBC (Auto) 0-4 (0-4) /hpf U Hyaline Cast (Auto) 1-5 (0-5) /lpf U Epithel Cells (Auto) 0-5 (0-5) /lpf Urine Bacteria (Auto) 1+ H (Negative) POC Ur Test (NEG) Urine Opiates Screen Neg (Neg) Ur Methadone, Qual Neg (Neg) Urine Barbiturates Neg (Neg) Ur Phencyclidine (PCP) Neg (Neg) U Amphetamin/Meth Scrn Neg (Neg) MDMA (Ecstasy) Screen Neg (Neg) U Benzodiazepines Scrn Neg (Neg) Ur Cocaine Metabolite Neg (Neg) U Marijuana (THC) Screen Pos H (Neg) SARS-CoV-2, RNA, NAAT (NEGATIVE) 09/02/22 09/02/22 Range/Units 21:05 21:15 WBC (4.8-10.8) K/ul RBC (4.20-5.40) M/uL Hgb (12.0-16.0) g/dl POC Hgb (12.0-16.0) g/dl Hct (37.0-47.0) % POC Hct (37-47) % MCV (80.0-100.0) fL MCH (25.0-34.0) pg MCHC (32.0-36.0) g/dL RDW Std Deviation (36.4-46.3) fL RDW Coeff of Quintin (11.5-14.5) % Plt Count (130-400) K/uL MPV (9.4-12.4) fL Immature Gran % (Auto) % Neut % (Auto) % Lymph % (Auto) % [place] % (Auto) % Eos % (Auto) % Baso % (Auto) % Neut # (Auto) (1.40-6.50) K/uL Lymph # (Auto) (1.2-3.4) K/uL [place] # (Auto) (0.11-0.59) K/uL Eos # (Auto) (0-0.50) K/uL Baso # (Auto) (0-0.2) K/uL Immature Gran # (Auto) (0.01-0.20) K/uL POC Sodium (135-144) mmol/L Sodium (136-145) mmol/L POC Potassium (3.3-5.0) mmol/L Potassium (3.5-5.1) mmol/L POC Chloride (101-112) mmol/L Chloride (98-107) mmol/L Carbon Dioxide (21-32) mmol/L POC Total CO2 (24-31) mmol/L Anion Gap (3-11) POC Anion Gap (16-25) mmol/L POC BUN (7-18) mg/dl BUN (6-23) mg/dl Creatinine (0.6-1.2) mg/dl POC Creatinine (0.6-1.3) mg/dl Est Cr Clr Drug Dosing ml/min Est GFR ( Amer) ml/min Est GFR (Non-Af Amer) ml/min BUN/Creatinine Ratio (10-20) Glucose (70-99(Fasting)) mg/dl POC Glucose (70-99) mg/dl POC Glucose (other) (70-99) mg/dl Calcium (8.6-10.3) mg/dl POC Ioniz Calcium Cal (1.12-1.32) mmol/l Magnesium (1.7-2.4) mg/dl Total Bilirubin (0.2-1.0) mg/dl AST (13-39) U/L ALT (7-52) U/L Alkaline Phosphatase (34-104) U/L Troponin I High Sens (0-14) pg/ml Total Protein (6.0-8.3) gm/dl Albumin (3.4-5.0) gm/dl Globulin (2.5-4.0) gm/dl Albumin/Globulin Ratio (0.9-2) Urine Color Urine Appearance (Clear) Urine pH (4.5-7.5) Ur Specific [place] (1.000-1.030) Urine Protein (Negative) Urine Glucose (UA) (Negative) Urine Ketones (Negative) Urine Blood (Negative) Urine Nitrite (Negative) Urine Bilirubin (Negative) Urine Urobilinogen (Negative) Ur Leukocyte Esterase (Negative) Urine WBC (Auto) (0-5) /hpf Urine RBC (Auto) (0-4) /hpf U Hyaline Cast (Auto) (0-5) /lpf U Epithel Cells (Auto) (0-5) /lpf Urine Bacteria (Auto) (Negative) POC Ur Test NEG (NEG) Urine Opiates Screen (Neg) Ur Methadone, Qual (Neg) Urine Barbiturates (Neg) Ur Phencyclidine (PCP) (Neg) U Amphetamin/Meth Scrn (Neg) MDMA (Ecstasy) Screen (Neg) U Benzodiazepines Scrn (Neg) Ur Cocaine Metabolite (Neg) U Marijuana (THC) Screen (Neg) SARS-CoV-2, RNA, NAAT NEGATIVE (NEGATIVE) Administered Medications Potassium Chloride (K Naveed / Wtr) 10 meq in 100 mls @ 100 mls/hr IV Q1H ULICES Stop: 09/02/22 23:44 Last Admin: 09/02/22 22:59 Dose: 100 mls/hr Documented By: Infusion: 09/02/22 22:52 Dose: 100 mls/hr Documented By: Admin: 09/02/22 21:52 Dose: 100 mls/hr Documented By: JUAN Discontinued Medications Sodium Chloride (Nss 1000ml) 2,000 mls @ 999 mls/hr IV .Q2H1M ONE Stop: 09/02/22 22:28 Last Infusion: 09/02/22 22:46 Dose: 0 mls/hr Documented By: Admin: 09/02/22 20:35 Dose: 999 mls/hr Documented By: PRACHI Levetiracetam 3,850 mg/ Sodium (Chloride) 138.5 mls @ 831 mls/hr IV NOW STA Stop: 09/02/22 20:35 Last Infusion: 09/02/22 21:18 Dose: 0 mls/hr Documented By: Admin: 09/02/22 21:07 Dose: 831 mls/hr Documented By: TELMA Lorazepam (Lorazepam 2 Mg/1 Ml Vial) Confirm Administered Dose 2 mg .ROUTE .STK- MED ONE Stop: 09/02/22 20:34 Last Admin: 09/02/22 20:35 Dose: 2 mg Documented By: PRACHI Lorazepam (Lorazepam 2 Mg/1 Ml Vial) 2 mg IV NOW STA Stop: 09/02/22 20:35 Last Admin: 09/02/22 21:37 Dose: Not Given Documented By: HJW Imaging Data Radiologist's Impression: Head CT 09/02/22 20:27 Exam(s): CT HEAD Without Contrast EXAM: CT Head Without Intravenous Contrast CLINICAL HISTORY: Reason for exam: ams. TECHNIQUE: Axial computed tomography images of the head/brain without intravenous contrast. CTDI is 38.24 mGy and DLP is 624.41 mGy-cm. Automated exposure control was utilized for the study. A dose lowering technique was utilized adhering to the principles of ALARA. COMPARISON: No relevant prior studies available. FINDINGS: No acute intracranial hemorrhage. No midline shift or mass effect. The territorial mondragon-white matter differentiation is maintained throughout. The ventricles and sulci are commensurate with age. The visualized orbits appear grossly unremarkable. The calvarium is intact. The visualized paranasal sinuses and mastoid air cells are grossly clear. IMPRESSION: No acute intracranial hemorrhage, midline shift, or mass effect. Electronically signed by: Ezequiel Schafer MD 09/02/22 21:27 PM Discharge Plan Visit Data Chief Complaint: Seizure Stated Complaint: SEIZURE ED Provider: Jesus Abernathy Discharge Problem: Status epilepticus, Hypokalemia, Drug abuse in remission Forms Stand Alone Forms: My [facility] Prescriptions Prescriptions: No Action sumatriptan succinate 50 mg Tablet 0 mg PO .COMPLEX Rx Instructions: take 1 tab at onset of headache; if no relief may repeat 1 tab after at least 2 hrs; max = 4 tabs/24 hr topiramate 25 mg Capsule,Extended Release 24hr 25 mg PO DAILY levetiracetam [Keppra] 500 mg tablet 750 mg PO BID Referrals Referrals: PCP,NO [Primary Care Provider] -
[2022-09-02 20:48] LABS: Basophils # (auto) 0.02 K/uL (0-0.2); Basophils % (auto) 0.3 %; Eosinophils # (auto) 0.06 K/uL (0-0.50); Hematocrit (blood only) 36.5 % (37.0-47.0); Hemoglobin 12.6 g/dl (12.0-16.0); Immature Granulocytes # (auto) 0.01 K/uL (0.01-0.20); Immature Granulocytes % (auto) 0.2 %; Lymphocytes # (auto) 1.69 K/uL (1.2-3.4); Lymphocytes % (auto) 27.8 %; Mean Corpuscular Hemoglobin 28.2 pg (25.0-34.0); Mean Corpuscular Hgb Conc 34.5 g/dL (32.0-36.0); Mean Corpuscular Volume 81.7 fL (80.0-100.0); Mean Platelet Volume 9.6 fL (9.4-12.4); Monocytes % (auto) 6.6 %; Neutrophils # (auto) 3.89 K/uL (1.40-6.50); Neutrophils % (auto) 64.1 %; Platelet Count 218 K/uL (130-400); RDW Coefficient of Variation 13.2 % (11.5-14.5); RDW Standard Deviation 39.4 fL (36.4-46.3); Red Blood Count 4.47 M/uL (4.20-5.40); White Blood Count 6.07 K/ul (4.8-10.8)
[2022-09-02 20:55] LABS: iSTAT Creatinine 0.6 mg/dl (0.6-1.3); iSTAT Hemoglobin 12.9 g/dl (12.0-16.0); iSTAT Ionized Calcium 1.16 mmol/l (1.12-1.32)
[2022-09-02 21:05] LABS: Alanine Aminotransferase 9 U/L (7-52); Albumin Globulin Ratio 1.5 (0.9-2); Albumin Level 4.4 gm/dl (3.4-5.0); Alkaline Phosphatase 53 U/L (34-104); Anion Gap 8 (3-11); Aspartate Aminotransferase 14 U/L (13-39); BUN Creatinine Ratio 6.8 (10-20); Bilirubin,Total 0.9 mg/dl (0.2-1.0); Blood Urea Nitrogen 5 mg/dl (6-23); Calcium 9.1 mg/dl (8.6-10.3); Carbon Dioxide 23 mmol/L (21-32); Chloride 108 mmol/L (98-107); Creatinine Clr Calc Pharmacy 136.7 ml/min; Est GFR (African American) 128.1 ml/min; Est GFR (Non-African American) 110.5 ml/min; Globulin 2.9 gm/dl (2.5-4.0); Glucose 80 mg/dl (70-99(Fasting)); Magnesium 1.8 mg/dl (1.7-2.4); Potassium 3.1 mmol/L (3.5-5.1); Sodium 139 mmol/L (136-145); Total Protein 7.3 gm/dl (6.0-8.3)
--- NOTE | 2022-09-02 21:28 | CT Scan Report ---
Exam(s): CT HEAD Without Contrast EXAM: CT Head Without Intravenous Contrast CLINICAL HISTORY: Reason for exam: ams. TECHNIQUE: Axial computed tomography images of the head/brain without intravenous contrast. CTDI is 38.24 mGy and DLP is 624.41 mGy-cm. Automated exposure control was utilized for the study. A dose lowering technique was utilized adhering to the principles of ALARA. COMPARISON: No relevant prior studies available. FINDINGS: No acute intracranial hemorrhage. No midline shift or mass effect. The territorial mondragon-white matter differentiation is maintained throughout. The ventricles and sulci are commensurate with age. The visualized orbits appear grossly unremarkable. The calvarium is intact. The visualized paranasal sinuses and mastoid air cells are grossly clear. IMPRESSION: No acute intracranial hemorrhage, midline shift, or mass effect. Electronically signed by: Ezequiel Schafer MD 09/02/22 21:27 PM
[2022-09-02 21:37] LABS: Appearance Urine Clear (Clear); Bacteria Urine Automated 1+ (Negative); Bilirubin Urine Negative (Negative); Blood Urine Trace (Negative); Color Urine Yellow; Epithelial Cell Urine Auto 0-5 /lpf (0-5); Glucose Urine UA Negative (Negative); Ketones Urine Negative (Negative); Leukocyte Esterase Urine 1+ (Negative); Nitrite Urine Negative (Negative); Protein Urine Negative (Negative); RBC Urine Automated 0-4 /hpf (0-4); Specific Gravity Urine 1.009 (1.000-1.030); Urobilinogen Urine Negative (Negative); WBC Urine Automated >30 /hpf (0-5); pH Urine 6.5 (4.5-7.5)
[2022-09-02 21:41] LABS: Troponin I High Sensitivity < 2.3 pg/ml (0-14)
[2022-09-02] MEDS: POTASSIUM CHLORIDE / WTR 10 MEQ/100 ML PLCT IV SCH ×2 (21:52→22:59)
[2022-09-02 22:31] LABS: Amphetamines+Metham, Urine Neg (Neg); Barbiturates, Urine Neg (Neg); Benzodiazepine, Urine Neg (Neg); Cocaine, Urine Neg (Neg); MDMA (Ecstacy), Urine Neg (Neg); Methadone, Urine Neg (Neg); Opiate, Urine Neg (Neg); Phencyclidine, Urine Neg (Neg)
[2022-09-02] MEDS ORDERED: cefTRIAXone SODIUM 2,000 MG/70 ML BAG IV STA (23:18)
--- NOTE | 2022-09-03 00:37 | History & Physical Report ---
Date of Service September 03, 2022 Assessment & Plan (1) Status epilepticus: (2) Drug abuse in remission: (3) Seizure disorder: (4) Hypokalemia: Plan Seizure disorder/status epilepticus versus increased seizure activity- Patient given Keppra 3850 mg IV loading dose by the ED Increase Keppra from 750 mg p.o. twice daily to 1000 mg p.o. twice daily starting in the morning Order MRI brain seizure protocol Order EEG Seizure precautions Urine drug screen positive for marijuana Urinalysis suggest UTI, and received ceftriaxone 1 g IV from the ED Consult neurology UTI- Follow urine culture and sensitivity Ceftriaxone 2 g IV every 24 hours Hypokalemia- Placed on NSS + KCl 20 mEq at 80 mils per hour History of Present Illness Chief Complaint: The patient the patient presents to the emergency department with report of seizure began about 10 minutes prior to the arrival of EMS. EMS notes tonic- clonic activity upon arrival, he was given 4 mg of Ativan, which resulted in cessation of seizures Primary Care Provider: NO PCP The patient is a 32-year-old female with a past medical history including drug abuse in remission, seizure disorder, migraine headache. She was brought to the emergency department by EMS after developing tonic-clonic seizure activity about 10 minutes prior to EMS arrival, and noted by EMS upon arrival. Patient was given 4 mg of Ativan in the outpatient setting with cessation of seizure activity. Significant laboratories: Potassium 3.1. COVID-19 testing negative Patient received Keppra 3850 mg IV from the ED, and was then referred for evaluation for admission. CT scan of head without contrast showed no acute intracranial hemorrhage, midline shift or mass effect Allergies Allergy/AdvReac Type Severity Reaction Status Date / Time [place] And Derivatives Allergy Hives & gi Verified 09/02/22 21:37 upset Home Medications Medication Instructions Recorded Confirmed Type levetiracetam 500 mg tablet 750 mg PO BID 09/02/22 09/02/22 History (Keppra) sumatriptan succinate 50 mg tablet 0 mg PO .COMPLEX 09/02/22 09/02/22 History topiramate 25 mg capsule,extended 25 mg PO DAILY 09/02/22 09/02/22 History release 24 hr Past Med/Surg History Medical History (Updated 09/03/22 @ 00:44 by French Mendez MD) Seizure disorder Social History Smoking Status: Unknown if ever smoked Preferred Language: Korean Cvicu Rn Required: No Feels Safe at Home: Yes Review of Systems Review of Systems: HPI and ROS are limited due to patient's sedation following ministration of Ativan and Keppra for control of seizures Physical Exam Physical Exam: The patient is sedated and unresponsive, well developed and well nourished, normocephalic and atraumatic, lying in bed and in no acute distress. HEENT--PERRL, EOMI, mucous membranes and oropharynx dry. Neck--supple. No JVD. No bruits. Thyroid normal, trachea midline, no adenopathy. Heart--normal S1 and S2. No murmurs, rubs or gallops. Lungs--clear bilaterally, no respiratory distress, no accessory muscle use. Abdomen--normal bowel sounds and soft. Nontender. Nondistended, no hernias or masses, no organomegaly. Extremities--no cyanosis or clubbing. No edema. There are good distal pulses b/l. Dermatologic--normal skin turgor, normal color, no abnormal lymph nodes, no rash. Neurologic--cranial nerves II through XII grossly intact. Rheumatologic--normal range of motion. Psychiatric--normal affect. Results & Data Results & Data Vital Signs (Past 12 Hours) Vital Signs Temp Pulse Pulse Resp BP BP Pulse Ox 09/02/22 23:00 78 15 117/72 96 09/02/22 22:15 79 18 118/59 L 96 09/02/22 20:51 66 20 125/94 100 09/02/22 20:30 80 09/02/22 20:26 36.9 C 69 18 127/80 98 O2 Del Method O2 Flow Rate 09/02/22 23:00 Nasal Cannula 09/02/22 22:15 Room Air 09/02/22 20:51 Non-rebreather 15 09/02/22 20:30 09/02/22 20:26 Room Air Laboratory Results Laboratory Results WBC 6.07 K/ul (4.8-10.8) 09/02/22 20:34 RBC 4.47 M/uL (4.20-5.40) 09/02/22 20:34 Hgb 12.6 g/dl (12.0-16.0) 09/02/22 20:34 POC Hgb 12.9 g/dl (12.0-16.0) 09/02/22 20:42 Hct 36.5 % (37.0-47.0) L 09/02/22 20:34 POC Hct 38 % (37-47) 09/02/22 20:42 MCV 81.7 fL (80.0-100.0) 09/02/22 20:34 MCH 28.2 pg (25.0-34.0) 09/02/22 20: MCHC 34.5 g/dL (32.0-36.0) 09/02/22 20:34 RDW Std Deviation 39.4 fL (36.4-46.3) 09/02/22 20: RDW Coeff of Quintin 13.2 % (11.5-14.5) 09/02/22 20: Plt Count 218 K/uL (130-400) 09/02/22 20: MPV 9.6 fL (9.4-12.4) 09/02/22 20:34 Immature Gran % (Auto) 0.2 % 09/02/22 20:34 Neut % (Auto) 64.1 % 09/02/22 20:34 Lymph % (Auto) 27.8 % 09/02/22 20:34 Travis % (Auto) 6.6 % 09/02/22 20:34 Eos % (Auto) 1.0 % 09/02/22 20:34 Baso % (Auto) 0.3 % 09/02/22 20:34 Neut # (Auto) 3.89 K/uL (1.40-6.50) 09/02/22 20:34 Lymph # (Auto) 1.69 K/uL (1.2-3.4) 09/02/22 20:34 Travis # (Auto) 0.40 K/uL (0.11-0.59) 09/02/22 20:34 Eos # (Auto) 0.06 K/uL (0-0.50) 09/02/22 20:34 Baso # (Auto) 0.02 K/uL (0-0.2) 09/02/22 20:34 Immature Gran # (Auto) 0.01 K/uL (0.01-0.20) 09/02/22 20:34 POC Sodium 141 mmol/L (135-144) 09/02/22 20:42 Sodium 139 mmol/L (136-145) 09/02/22 20:34 POC Potassium 3.0 mmol/L (3.3-5.0) L 09/02/22 20:42 Potassium 3.1 mmol/L (3.5-5.1) L 09/02/22 20:34 POC Chloride 106 mmol/L (101-112) 09/02/22 20:42 Chloride 108 mmol/L (98-107) H 09/02/22 20:34 Carbon Dioxide 23 mmol/L (21-32) 09/02/22 20:34 POC Total CO2 22 mmol/L (24-31) L 09/02/22 20:42 Anion Gap 8 (3-11) 09/02/22 20:34 POC Anion Gap 17.0 mmol/L (16-25) 09/02/22 20:42 POC BUN 3 mg/dl (7-18) L 09/02/22 20:42 BUN 5 mg/dl (6-23) L 09/02/22 20:34 Creatinine 0.73 mg/dl (0.6-1.2) 09/02/22 20:34 POC Creatinine 0.6 mg/dl (0.6-1.3) 09/02/22 20:42 Est Cr Clr Drug Dosing 136.7 ml/min 09/02/22 20:34 Est GFR ( Amer) 128.1 ml/min 09/02/22 20:34 Est GFR (Non-Af Amer) 110.5 ml/min 09/02/22 20:34 BUN/Creatinine Ratio 6.8 (10-20) L 09/02/22 20:34 Glucose 80 mg/dl (70-99(Fasting)) 09/02/22 20:34 POC Glucose 84 mg/dl (70-99) 09/02/22 20:31 POC Glucose (other) 81 mg/dl (70-99) 09/02/22 20:42 Calcium 9.1 mg/dl (8.6-10.3) 09/02/22 20:34 POC Ioniz Calcium Cal 1.16 mmol/l (1.12-1.32) 09/02/22 20:42 Magnesium 1.8 mg/dl (1.7-2.4) 09/02/22 20:34 Total Bilirubin 0.9 mg/dl (0.2-1.0) 09/02/22 20:34 AST 14 U/L (13-39) 09/02/22 20:34 ALT 9 U/L (7-52) 09/02/22 20:34 Alkaline Phosphatase 53 U/L (34-104) 09/02/22 20:34 Troponin I High Sens < 2.3 pg/ml (0-14) 09/02/22 20:34 Total Protein 7.3 gm/dl (6.0-8.3) 09/02/22 20:34 Albumin 4.4 gm/dl (3.4-5.0) 09/02/22 20:34 Globulin 2.9 gm/dl (2.5-4.0) 09/02/22 20:34 Albumin/Globulin Ratio 1.5 (0.9-2) 09/02/22 20:34 Urine Color Yellow 09/02/22 21:00 Urine Appearance Clear (Clear) 09/02/22 21:00 Urine pH 6.5 (4.5-7.5) 09/02/22 21:00 Ur Specific [place] 1.009 (1.000-1.030) 09/02/22 21:00 Urine Protein Negative (Negative) 09/02/22 21:00 Urine Glucose (UA) Negative (Negative) 09/02/22 21:00 Urine Ketones Negative (Negative) 09/02/22 21:00 Urine Blood Trace (Negative) H 09/02/22 21:00 Urine Nitrite Negative (Negative) 09/02/22 21:00 Urine Bilirubin Negative (Negative) 09/02/22 21:00 Urine Urobilinogen Negative (Negative) 09/02/22 21:00 Ur Leukocyte Esterase 1+ (Negative) H 09/02/22 21:00 Urine WBC (Auto) >30 /hpf (0-5) H 09/02/22 21:00 Urine RBC (Auto) 0-4 /hpf (0-4) 09/02/22 21:00 U Hyaline Cast (Auto) 1-5 /lpf (0-5) 09/02/22 21:00 U Epithel Cells (Auto) 0-5 /lpf (0-5) 09/02/22 21:00 Urine Bacteria (Auto) 1+ (Negative) H 09/02/22 21:00 POC Ur Test NEG (NEG) 09/02/22 21:05 Urine Opiates Screen Neg (Neg) 09/02/22 21:00 Ur Methadone, Qual Neg (Neg) 09/02/22 21:00 Urine Barbiturates Neg (Neg) 09/02/22 21:00 Ur Phencyclidine (PCP) Neg (Neg) 09/02/22 21:00 U Amphetamin/Meth Scrn Neg (Neg) 09/02/22 21:00 MDMA (Ecstasy) Screen Neg (Neg) 09/02/22 21:00 U Benzodiazepines Scrn Neg (Neg) 09/02/22 21:00 Ur Cocaine Metabolite Neg (Neg) 09/02/22 21:00 U Marijuana (THC) Screen Pos (Neg) H 09/02/22 21:00 SARS-CoV-2, RNA, NAAT NEGATIVE (NEGATIVE) 09/02/22 21:[address] 09/02/22 20:27 Exam(s): CT HEAD Without Contrast EXAM: CT Head Without Intravenous Contrast CLINICAL HISTORY: Reason for exam: ams. TECHNIQUE: Axial computed tomography images of the head/brain without intravenous contrast. CTDI is 38.24 mGy and DLP is 624.41 mGy-cm. Automated exposure control was utilized for the study. A dose lowering technique was utilized adhering to the principles of ALARA. COMPARISON: No relevant prior studies available. FINDINGS: No acute intracranial hemorrhage. No midline shift or mass effect. The territorial mondragon-white matter differentiation is maintained throughout. The ventricles and sulci are commensurate with age. The visualized orbits appear grossly unremarkable. The calvarium is intact. The visualized paranasal sinuses and mastoid air cells are grossly clear. IMPRESSION: No acute intracranial hemorrhage, midline shift, or mass effect. Electronically signed by: Ezequiel Schafer MD 09/02/22 21:27 PM Code Status & VTE Plan Code Status Full code VTE Prophylaxis Plan VTE Prophylaxis will be ordered: Yes PG Care Time/CCT Total # of Minutes Spent Total Time Spent with Patient: Total time spent is greater than 50% in coordination of care (as documented) at patient's floor/unit and/or counseling patient: Coding Level of Care Code 71171 INT INP/OBS CARE 3/75MIN Diagnoses Status epilepticus G40.901 Drug abuse in remission F19.11 Seizure disorder G40.909 Hypokalemia E87.6
[2022-09-03] MEDS ORDERED: ACETAMINOPHEN 325 MG TAB PO PRN (02:22)
[2022-09-03] MEDS ORDERED: SUMAtriptan succinate 50 MG TAB PO PRN (02:22)
[2022-09-03] MEDS ORDERED: ONDANSETRON INJ 2 MG/ML 2 ML VIAL IV PRN (02:22)
[2022-09-03 04:24] LABS: Basophils # (auto) 0.03 K/uL (0-0.2); Basophils % (auto) 0.7 %; Eosinophils # (auto) 0.05 K/uL (0-0.50); Eosinophils % (auto) 1.1 %; Hematocrit (blood only) 31.7 % (37.0-47.0); Hemoglobin 10.9 g/dl (12.0-16.0); Immature Granulocytes # (auto) 0.01 K/uL (0.01-0.20); Immature Granulocytes % (auto) 0.2 %; Lymphocytes # (auto) 1.39 K/uL (1.2-3.4); Lymphocytes % (auto) 31.4 %; Mean Corpuscular Hgb Conc 34.4 g/dL (32.0-36.0); Mean Corpuscular Volume 81.5 fL (80.0-100.0); Mean Platelet Volume 9.7 fL (9.4-12.4); Monocytes # (auto) 0.36 K/uL (0.11-0.59); Monocytes % (auto) 8.1 %; Neutrophils # (auto) 2.58 K/uL (1.40-6.50); Neutrophils % (auto) 58.5 %; Platelet Count 184 K/uL (130-400); RDW Coefficient of Variation 13.5 % (11.5-14.5); RDW Standard Deviation 39.8 fL (36.4-46.3); Red Blood Count 3.89 M/uL (4.20-5.40); White Blood Count 4.42 K/ul (4.8-10.8)
[2022-09-03 04:48] LABS: Albumin Level 3.3 gm/dl (3.4-5.0); Bilirubin,Total 0.6 mg/dl (0.2-1.0); Calcium 7.5 mg/dl (8.6-10.3); Potassium 3.3 mmol/L (3.5-5.1)
[2022-09-03 05:07] LABS: Albumin Globulin Ratio 1.6 (0.9-2); BUN Creatinine Ratio 6.3 (10-20); Est GFR (African American) 139.5 ml/min; Est GFR (Non-African American) 120.4 ml/min; Globulin 2.1 gm/dl (2.5-4.0); Total Protein 5.4 gm/dl (6.0-8.3)
--- NOTE | 2022-09-03 07:27 | Hospitalist Progress Note ---
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 Letter suggest supportive behavioral therapy for PNES with educating the patient that this is real condition happens real people and will likely extinguished with time (2) Drug abuse in remission: Plan: talk screen and presentation is positive for THC (3) Hypokalemia: Plan: Hypokalemia- replete with both intravenous and oral formation (4) UTI (urinary tract infection): Plan: gram negative 60.000 on presentation unclear if clinical sx, abd is tender to exam, start ceftriaxone Plan UTI- Follow urine culture and sensitivity Ceftriaxone 2 g IV every 24 hours Admission and Anticipated Discharge Date Admission Date: September 03, 2022 Subjective earlier today I visited the patient and she was sedated she did respond to tactile stimuli. Later today reportedly surrounding a neurology telecom consult the patient developed seizure-like activity with did not have any corroborating EEG activity subsequently neurologist, Dr. 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 He does not describe this in his consultation however he states that they had other outpatient corroboration of similar issues with this patient Physical Exam Physical Exam: patient was spontaneously moving all extremities would not follow commands however was sedated at the time I saw her Results & Data Results & Data Vital Signs (Past 12 Hours) Vital Signs Temp Pulse Pulse Resp BP BP Pulse Ox 09/03/22 04:37 98.2 F 74 17 102/59 L 95 09/03/22 01:45 67 09/03/22 02:22 09/03/22 01:49 97.7 F 70 16 111/64 97 09/03/22 01:00 68 14 116/68 98 09/03/22 00:35 72 09/03/22 00:00 66 15 139/91 99 09/02/22 23:00 78 15 117/72 96 09/02/22 22:15 79 18 118/59 L 96 09/02/22 20:51 66 20 125/94 100 09/02/22 20:30 80 09/02/22 20:26 98.4 F 69 18 127/80 98 Pulse Ox O2 Del Method O2 Del Method O2 Flow Rate 09/03/22 04:37 Room Air 09/03/22 01:45 09/03/22 02:22 96 Room Air 09/03/22 01:49 Room Air 09/03/22 01:00 Room Air 09/03/22 00:35 09/03/22 00:00 Room Air 09/02/22 23:00 Nasal Cannula 09/02/22 22:15 Room Air 09/02/22 20:51 Non-rebreather 15 09/02/22 20:30 09/02/22 20:26 Room Air Laboratory Results reviewed CBC reviewed chemistry personally spoke to Dr. Ivy neurology on-call PG Care Time/CCT Total # of Minutes Spent Total Time Spent with Patient: Total time spent is greater than 50% in coordination of care (as documented) at patient's floor/unit and/or counseling patient: Coding Level of Care Code 11777 SUB INP/OBS CARE 2/35MIN Diagnoses Convulsion R56.9 Drug abuse in remission F19.11 Hypokalemia E87.6 UTI (urinary tract infection) N39.0
[2022-09-03] MEDS: POTASSIUM CHLORIDE / WTR 10 MEQ/100 ML PLCT IV SCH ×3 (08:25→10:46)
[2022-09-03] MEDS ORDERED: levETIRAcetam 1,000 MG in 0.9 % SODIUM CHLORIDE 100 ML IV SCH (09:00)
[2022-09-03] MEDS ORDERED: levETIRAcetam 500 MG TAB PO SCH (09:00)
[2022-09-03] MEDS ORDERED: TOPIRAMATE 25 MG PO SCH (09:00)
[2022-09-03] MEDS ORDERED: cefTRIAXone SODIUM 2,000 MG in DEXTROSE 5% 50 ML IV SCH ×2 (09:45→22:00)
--- NOTE | 2022-09-03 11:26 | Electrocardiogram Report ---
Test Reason : Blood Pressure : / mmHG Vent. Rate : 076 BPM Atrial Rate : 076 BPM P-R Int : 164 ms QRS Dur : 080 ms QT Int : 408 ms P-R-T Axes : 052 030 031 degrees QTc Int : 459 ms Normal sinus rhythm Normal ECG When compared with ECG of 14-JUL-2022 06:20, No significant change was found Confirmed by Wayne Rodriguez ([id number]) on 09/03/2022 11:26:29 AM Referred By: REFERRED SELF Confirmed By:Wayne Rodriguez
--- NOTE | 2022-09-03 16:43 | Electroencephalogram ---
EEG Procedure Note Date of Service September 03, 2022 Start / End Times Start Time: 06:44 End Time: 07:)[address] Mendez History A 32 year old female with possible seizure. EEG performed for evaluation of epileptiform activity. Home Medication List Medication Instructions Recorded Confirmed Type levetiracetam 500 mg tablet 750 mg PO BID 09/02/22 09/02/22 History (Keppra) sumatriptan succinate 50 mg tablet 0 mg PO .COMPLEX 09/02/22 09/02/22 History topiramate 25 mg capsule,extended 25 mg PO DAILY 09/02/22 09/02/22 History release 24 hr Inpatient Medication List Levetiracetam 1,000 mg/ Sodium (Chloride) 110 mls @ 440 mls/hr IV Q12H ULICES Stop: 10/03/22 08:29 Last Infusion: 09/03/22 10:14 Dose: 0 mls/hr Documented By: Admin: 09/03/22 09:25 Dose: 440 mls/hr Documented By: RICHMOND Miscellaneous (Topamax Er - Order Awaiting Action) 1 each N/A QS ULICES Stop: 10/03/22 07:59 Last Admin: 09/03/22 10:15 Dose: Not Given Documented By: GPSunday Discontinued Medications Sodium Chloride (Nss 1000ml) 2,000 mls @ 999 mls/hr IV .Q2H1M ONE Stop: 09/02/22 22:28 Last Infusion: 09/02/22 22:46 Dose: 0 mls/hr Documented By: Admin: 09/02/22 20:35 Dose: 999 mls/hr Documented By: PRACHI Levetiracetam 3,850 mg/ Sodium (Chloride) 138.5 mls @ 831 mls/hr IV NOW STA Stop: 09/02/22 20:35 Last Infusion: 09/02/22 21:18 Dose: 0 mls/hr Documented By: Admin: 09/02/22 21:07 Dose: 831 mls/hr Documented By: TELMA Potassium Chloride (K Naveed / Wtr) 10 meq in 100 mls @ 100 mls/hr IV Q1H ULICES Stop: 09/02/22 23:44 Last Infusion: 09/02/22 23:59 Dose: 0 mls/hr Documented By: Admin: 09/02/22 22:59 Dose: 100 mls/hr Documented By: Infusion: 09/02/22 22:52 Dose: 100 mls/hr Documented By: Admin: 09/02/22 21:52 Dose: 100 mls/hr Documented By: KT Ceftriaxone Sodium (Rocephin) 2,000 mg in 70 mls @ 140 mls/hr IV NOW STA Stop: 09/02/22 23:47 Last Infusion: 09/03/22 00:34 Dose: 0 mls/hr Documented By: Admin: 09/03/22 00:04 Dose: 140 mls/hr Documented By: NONA Potassium Chloride (K Naveed / Wtr) 10 meq in 100 mls @ 100 mls/hr IV Q1H ULICES Stop: 09/03/22 10:29 Last Infusion: 09/03/22 12:19 Dose: 0 mls/hr Documented By: Admin: 09/03/22 10:46 Dose: 80 mls/hr Documented By: Infusion: 09/03/22 10:44 Dose: 80 mls/hr Documented By: Admin: 09/03/22 09:29 Dose: 80 mls/hr Documented By: Infusion: 09/03/22 09:29 Dose: 80 mls/hr Documented By: Admin: 09/03/22 08:25 Dose: 80 mls/hr Documented By: GPF Lorazepam (Lorazepam 2 Mg/1 Ml Vial) Confirm Administered Dose 2 mg .ROUTE .STK- MED ONE Stop: 09/02/22 20:34 Last Admin: 09/02/22 20:35 Dose: 2 mg Documented By: KASunday Lorazepam (Lorazepam 2 Mg/1 Ml Vial) 2 mg IV NOW STA Stop: 09/02/22 20:35 Last Admin: 09/02/22 21:37 Dose: Not Given Documented By: TELMA Non-Formulary Medication (Topiramate) 25 mg PO DAILY ULICES Stop: 10/03/22 08:59 Last Admin: 09/03/22 12:19 Dose: Not Given Documented By: GPF Description This is a 21 electrode EEG with a single channel dedicated to limited EKG. The electrodes were placed in accordance with the International 10-20 system. REPORT; At the onset of the EEG the patient is asleep. The background is symmetric and consist of generalized theta/delta activity with intermixed beta activity. No periods of wakefulness are recorded. Interpretation IMPRESSION: This is a normal asleep 20 minute routine EEG. Excessive beta ac tvity is a normal variant and likley medication related (ie benzodiazepines). No epileptiform activity is seen.
[2022-09-03] MEDS ORDERED: LORazepam 2 MG/1 ML VIAL IV STA (17:00)
[2022-09-03] MEDS ORDERED: LORazepam 2 MG/1 ML VIAL ONE (17:05)
--- NOTE | 2022-09-03 17:30 | Neurology Consultation ---
Date of Consultation September 03, 2022 Assessment & Plan (1) Convulsion: Plan A 32 year old female admitted with convulsive activtiy. On televideo at patient witnessed to have an event or convulsive activity consistent w non epileptic event (eyes closed, altnerating movements, sided to side head movements. Routine EEG and CT head normal. Agree with MRI brain which is pending. Recommend to continue current dose of Keppra 750 mg BID. Would avoid any further Ativan. Consider psychiatry consult as outpatient. History of Present Illness Reason for Consultation: Seizure-like activity Attending Physician: Yoan Graham MD History of Present Illness A 32 year old female with history of drug abuse and migraine headache admitted for witnessed seizure like activity. History limited due to patient non verbal. No family at bedside. Patient recieved Ativan and ER and loaded with Keppra. Home Keppra was increased from 500 to 750 mg BID. EEG completed and MRI brain pending. Allergies Allergy/AdvReac Type Severity Reaction Status Date / Time [place] And Derivatives Allergy Hives & gi Verified 09/02/22 21:37 upset Home Medications Medication Instructions Recorded Confirmed Type levetiracetam 500 mg tablet 750 mg PO BID 09/02/22 09/02/22 History (Keppra) sumatriptan succinate 50 mg tablet 0 mg PO .COMPLEX 09/02/22 09/02/22 History topiramate 25 mg capsule,extended 25 mg PO DAILY 09/02/22 09/02/22 History release 24 hr Patient History Medical History (Updated 09/03/22 @ 17:36 by Molina Hamlin DO) Seizure disorder Social History Smoking Status: Unknown if ever smoked Hx Substance Use: Yes Last Used Substance: Unknown Substance Use Type Other:: unknown Preferred Language: Niuean Communication Ability: Unable Blocklayer Required: No Beliefs That Will Affect Care: None Feels Safe at Home: Yes Assistive Devices: None Physical Exam Physical Exam: Patient is awake and laying on rigth side. Eyes closed. Mouth opening and closing. Moving upper part of green party and lip smacking. Some chorieform movements in upper body. Non verbal and not following commands. Eyes midline. Pupils symmetric and reactive. Results & Data Vital Signs (Past 12 Hours) Vital Signs Temp Pulse Resp BP Pulse Ox Pulse Ox O2 Del Method 09/03/22 16:00 53 L 09/03/22 14:00 53 L 13 97 09/03/22 13:00 51 L 14 98 09/03/22 14:00 36.7 C 16 99 Room Air 09/03/22 12:00 93 H 23 95 09/03/22 12:00 140/93 09/03/22 10:00 61 16 98 09/03/22 08:00 54 L 13 98 09/03/22 08:00 123/69 09/03/22 07:35 61 14 99 09/03/22 07:35 132/84 09/03/22 07:00 61 15 97 09/03/22 12:00 36.5 C 09/03/22 08:00 Room Air 09/03/22 08:00 99 09/03/22 08:00 67 O2 Del Method 09/03/22 16:00 09/03/22 14:00 09/03/22 13:00 09/03/22 14:00 09/03/22 12:00 09/03/22 12:00 09/03/22 10:00 09/03/22 08:00 09/03/22 08:00 09/03/22 07:35 09/03/22 07:35 09/03/22 07:00 09/03/22 12:00 09/03/22 08:00 09/03/22 08:00 Room Air 09/03/22 08:[address] head non conrast: Negative for acute intrcranial abnormality. Routine EEG: Excessive beta actvity , normal variant.
[2022-09-03] MEDS ORDERED: levETIRAcetam ORAL SOLN 100MG/ML PO SCH (21:00)
[2022-09-05 09:32] LABS: Marijuana Quant, GCMS Urine 1615 ng/mL (<5)
--- NOTE | 2022-09-18 15:16 | Discharge Summary ---
Date of Service September 18, 2022 Admission HPI Per Admitting Provider The patient is a 32-year-old female with a past medical history including drug abuse in remission, seizure disorder, migraine headache. She was brought to the emergency department by EMS after developing tonic-clonic seizure activity about 10 minutes prior to EMS arrival, and noted by EMS upon arrival. Patient was given 4 mg of Ativan in the outpatient setting with cessation of seizure activity. Significant laboratories: Potassium 3.1. COVID-19 testing negative Patient received Keppra 3850 mg IV from the ED, and was then referred for evaluation for admission. 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 Letter suggest supportive behavioral therapy for PNES with educating the patient that this is real condition happens real people and will likely extinguished with time Patient was informed this diagnosis she wished to leave AMA (2) Drug abuse in remission: tox screen on presentation is positive for THC (3) Hypokalemia: Hypokalemia- replete with both intravenous and oral formation (4) UTI (urinary tract infection): gram negative 60.000 on presentation unclear if clinical sx, abd is tender to exam, start ceftriaxone patient left AGAINST MEDICAL ADVICE did not get a prescription Total Time Total Time Spent Total Time Spent (In Minutes): It required greater than 30 minutes to prepare this patient for discharge Discharge Plan Discharge Items Patient Disposition: Home - Self-Care Reason For Visit: SEIZURE DISORDER Discharge Diagnosis: aPsychogenic non epileptic seizure Activity: Per Instructions section Activity Comment: no driving Non-emergency contact: Primary Care Provider, Specialist and Neurologist Call non-emergency contact if: your symptoms worsen Follow-up/Referrals: Molina Hamlin, DO [Physician] - PCP,NO [Primary Care Provider] - Diet: Regular Addtl Attending Provider Instructions: 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 Typically this is not treated with ativan or Benzodiazepine medicines but the shaking episodes will eventually stop on their own Please continue to take your keppra until you speak to a neurologist you also have a urine infection and medication will be sent to your pharmacy Pending Studies at Discharge: No Stand-Alone Forms: My [facility], Smoking Cessation Medications and DC Order Prescriptions: Continued sumatriptan succinate 50 mg Tablet 0 mg PO .COMPLEX Rx Instructions: take 1 tab at onset of headache; if no relief may repeat 1 tab after at least 2 hrs; max = 4 tabs/24 hr topiramate 25 mg Capsule,Extended Release 24hr 25 mg PO DAILY levetiracetam [Keppra] 500 mg tablet 750 mg PO BID Discharge Orders: Discharge Order (Routine); Ordered 09/03/22 Ordered By: Yoan Graham Admission Data Admit Date/Time: 09/03/22 00:16 Attending Provider: Yoan Guerra Admit Provider: French Mendez Primary Care Provider: PCP,NO Other Providers: Molina Hamlin Other Interventions: Discharge Summary Assessment (RN) Last Done: 09/03/22 19:49 Coding Level of Care Code 12788 INP/OBS DISCH >30 MIN Diagnoses Convulsion R56.9 Drug abuse in remission F19.11 Hypokalemia E87.6 UTI (urinary tract infection) N39.0
== END 2022-09-03 20:30 | disposition home or self-care (01) | DRG 101 ==
LOC: ED 20:22 → INTOOBSV 09-03 00:16 → SUATTDRO 09-03 00:16 → 1E 09-03 00:16 → 4W 09-03 19:07

== ENCOUNTER 2022-09-23 06:08 | Inpatient (IN) ==
[2022-09-23] MEDS ORDERED: LORazepam 2 MG/1 ML VIAL ONE (06:13)
[2022-09-23] MEDS ORDERED: SODIUM CHLORIDE 0.9% 1000ML 1,000 ML IV ONE (06:19)
--- NOTE | 2022-09-23 06:24 | Emergency Department Note ---
Impression & Plan Suicide attempt by drug overdose, Episode of shaking ED Provider Note Name: AUSTIN FULLER Age: 32 Sex: F Arrives Via: Walk-In Informant: Nursing staff ED Provider: Andrea Colindres MD Chief Complaint: Overdose Impression: As per impression above Medical Decision Makin-year-old female with a history of pseudoseizures, seizures, drug abuse, migraines arrives for evaluation of an overdose. Patient reportedly took 30 tablets of pills this morning that were believed to be a mix of Keppra and her topiramate. Patient with unusual exam at times thrashing all over the bed and otherwise just laying in bed in no distress. Her vital signs are essentially unremarkable. Due to her thrashing unable to get IV thus Ativan given after which she was calm sleeping in no distress. She awakens briefly to verbal command before falling back to sleep without saying anything. No evidence of trauma other than some older bruising of anterior breasts of uncertain etiology. She has no evidence of head or neck trauma. She has had extensive work-up over the last few weeks for seizure-like activity thus we will hold off on further neuroimaging. Patient has an unremarkable EKG, normal vital signs and otherwise looks well. Her overdose of Keppra and topiramate are not likely to cause significant issues require further cardiac monitoring and likely psychiatric evaluation. Patient is unable to participate in exam at this time versus on [place]. Laboratory work-up is benign no evidence of Tylenol salicylate overdose. Consulted for further management. Patient was kept on telemetry monitoring and suicide precautions throughout. Prior Medical Record and Triage/Nursing Notes reviewed by Me External chart reviewed by me including recent hospitalization records and discharge summary Differentials:Overdose, toxicologic, infection, hypoglycemia, electrolyte abnormalities, cardiac sources, intracerebral event, neurologic, trauma, as well as other pathologies. Vital Signs: reviewed and remarkable for no significant abnormalities Interventions: Ativan 2 mg IM, normal saline bolus 1 L IV Labs:Reviewed and remarkable for no significant abnormalities Imagin view chest x-ray as per my interpretation no infiltrate nor effusion appreciated EKG:As per my interpretation. Indication overdose. Normal sinus rhythm at 75 bpm without ectopy nor ischemia. QTc of 446. QRS 74. Compared to EKG September 02, 2022 there is no significant change Cardiac/Tele Monitoring: Cardiac Monitoring: An Order was placed for continuous cardiac monitoring. The monitor shows a rate of 70 with a normal sinus rhythm. Consults:Dr Jorge Alberto ADAIR Hospitalist Plan: Disposition:Hospitalization. Condition: Good History of Present Illness:32-year-old female arrives for evaluation of overd ose. Patient reportedly took 30 tablets of her Keppra and topiramate. Unclear number of each but the Keppra 750 mg per tab and topiramate 25 mg per tab. This occurred within the last few hours. It is reportedly a suicide attempt. She arrives with . Patient is significantly agitated and thrashing making history and examination difficult Past History: Per chart seizure disorder versus pseudoseizures, previous drug abuse, migraines Home Medications: Keppra, sumatriptan, topiramate Allergies:citrus Vitals:Blood Pressure: 146/63, Pulse 81, RR 26, O2 100% on RA, T 37.4 Physical Exam: GENERAL: Patient is thrashing around the bed not following commands, not answering questions. HEAD: AT/NC NECK: No masses appreciated, nomeningismus, trachea is midline. RESPIRATORY: No dyspnea. Clear to auscultation and equal bilaterally. No wheeze, no rhonchi. CARDIOVASCULAR: Regular rate and rhythm.No murmurs, rubs, gallops appreciated. GASTROINTESTINAL: Abdomen soft, non-tender, no peritonitis. EXTREMITIES: Normal motion all extremities, no cyanosis, no edema. NEUROLOGIC: Agitated, thrashing around in bed, moves all extremities SKIN: No rash, no jaundice, no diaphoresis. Older bruising bilateral breasts PSYCH: Appropriate GCS: 15 ED Course: Times/Reassessments: Patient sleeping she is in no distress vitals remained stable throughout. Andrea Colindres MD Past Med/Surg History Medical History (Updated 09/23/22 @ 12:21 by Andrea Colindres MD) Seizure disorder Social History Smoking Status: Unknown if ever smoked Hx Substance Use: Yes Last Used Substance: Unknown Substance Use Type Other:: unknown Preferred Language: Bolivian Communication Ability: Unable Sanitary Engineering Teacher Required: No Beliefs That Will Affect Care: None Feels Safe at Home: Yes Assistive Devices: None Allergies Allergies Allergy/AdvReac Type Severity Reaction Status Date / Time [place] And Derivatives Allergy Hives & gi Verified 09/02/22 21:37 upset Home Meds Home Medications Medication Instructions Recorded Confirmed levetiracetam 500 mg tablet 750 mg PO BID 09/02/22 09/02/22 (Keppra) sumatriptan succinate 50 mg tablet 0 mg PO .COMPLEX 09/02/22 09/02/22 topiramate 25 mg capsule,extended 25 mg PO DAILY 09/02/22 09/02/22 release 24 hr Results & Data (ED) Vital Signs Vital Signs - 24 hr 09/23/22 06:11 09/23/22 06:27 09/23/22 06:15 Temperature Temperature Source Pulse Rate 81 78 61 Pulse Rate [Right Finger] Pulse Rate from SpO2 Sensor 62 Respiratory Rate 26 H 21 Respiratory Effort / Characteristics Respiratory Depth Blood Pressure 146/63 H 146/63 H Blood Pressure [Right Arm] Blood Pressure Mean 90 90 Blood Pressure Mean [Right Arm] Pulse Oximetry 100 100 Oxygen Delivery Method Room Air Room Air Sepsis Recent Fever Within 48 Hours No Sepsis New/Unexplained Change in Mental Status No Sepsis Action Taken by Nursing No Action Required 09/23/22 06:26 09/23/22 06:31 09/23/22 06:45 Temperature Temperature Source Pulse Rate 64 74 57 L Pulse Rate [Right Finger] Pulse Rate from SpO2 Sensor 64 62 59 L Respiratory Rate 24 23 14 Respiratory Effort / Characteristics Respiratory Depth Blood Pressure 115/79 111/69 92/60 L Blood Pressure [Right Arm] Blood Pressure Mean 91 83 70 Blood Pressure Mean [Right Arm] Pulse Oximetry 100 96 97 Oxygen Delivery Method Room Air Room Air Room Air Sepsis Recent Fever Within 48 Hours Sepsis New/Unexplained Change in Mental Status Sepsis Action Taken by Nursing 09/23/22 07:00 09/23/22 07:00 09/23/22 07:26 Temperature Temperature Source Pulse Rate 57 L Pulse Rate [Right Finger] 62 Pulse Rate from SpO2 Sensor 57 L 66 Respiratory Rate 14 15 18 Respiratory Effort / Characteristics Non-Labored Respiratory Depth Normal Blood Pressure 97/52 L 94/52 L Blood Pressure [Right Arm] 103/70 Blood Pressure Mean 67 66 Blood Pressure Mean [Right Arm] 81 Pulse Oximetry 99 99 97 Oxygen Delivery Method Room Air Room Air Room Air Sepsis Recent Fever Within 48 Hours Sepsis New/Unexplained Change in Mental Status Sepsis Action Taken by Nursing 09/23/22 09:00 09/23/22 10:45 09/23/22 11:00 Temperature Temperature Source Pulse Rate 54 L 55 L Pulse Rate [Right Finger] Pulse Rate from SpO2 Sensor 54 L Respiratory Rate 14 15 Respiratory Effort / Characteristics Respiratory Depth Blood Pressure 105/53 L Blood Pressure [Right Arm] Blood Pressure Mean 70 Blood Pressure Mean [Right Arm] Pulse Oximetry 98 Oxygen Delivery Method Room Air Sepsis Recent Fever Within 48 Hours Sepsis New/Unexplained Change in Mental Status Sepsis Action Taken by Nursing 09/23/22 09:45 09/23/22 10:00 09/23/22 10:00 Temperature Temperature Source Pulse Rate 57 L 54 L Pulse Rate [Right Finger] Pulse Rate from SpO2 Sensor 57 L 54 L Respiratory Rate 15 15 Respiratory Effort / Characteristics Respiratory Depth Blood Pressure 105/73 Blood Pressure [Right Arm] Blood Pressure Mean 83 Blood Pressure Mean [Right Arm] Pulse Oximetry 97 97 Oxygen Delivery Method Sepsis Recent Fever Within 48 Hours Sepsis New/Unexplained Change in Mental Status Sepsis Action Taken by Nursing 09/23/22 10:15 09/23/22 10:30 09/23/22 10:45 Temperature Temperature Source Pulse Rate 54 L 69 73 Pulse Rate [Right Finger] Pulse Rate from SpO2 Sensor 55 L 73 73 Respiratory Rate 15 15 16 Respiratory Effort / Characteristics Respiratory Depth Blood Pressure Blood Pressure [Right Arm] Blood Pressure Mean Blood Pressure Mean [Right Arm] Pulse Oximetry 97 98 96 Oxygen Delivery Method Sepsis Recent Fever Within 48 Hours Sepsis New/Unexplained Change in Mental Status Sepsis Action Taken by Nursing 09/23/22 11:00 09/23/22 11:00 09/23/22 11:15 Temperature Temperature Source Pulse Rate 68 64 Pulse Rate [Right Finger] Pulse Rate from SpO2 Sensor 68 64 Respiratory Rate 17 14 Respiratory Effort / Characteristics Respiratory Depth Blood Pressure 91/56 L Blood Pressure [Right Arm] Blood Pressure Mean 67 Blood Pressure Mean [Right Arm] Pulse Oximetry 95 97 Oxygen Delivery Method Sepsis Recent Fever Within 48 Hours Sepsis New/Unexplained Change in Mental Status Sepsis Action Taken by Nursing 09/23/22 11:30 09/23/22 11:45 09/23/22 12:05 Temperature Temperature Source Pulse Rate 57 L 86 79 Pulse Rate [Right Finger] Pulse Rate from SpO2 Sensor 56 L 85 75 Respiratory Rate 16 19 15 Respiratory Effort / Characteristics Respiratory Depth Blood Pressure Blood Pressure [Right Arm] Blood Pressure Mean Blood Pressure Mean [Right Arm] Pulse Oximetry 98 97 97 Oxygen Delivery Method Sepsis Recent Fever Within 48 Hours Sepsis New/Unexplained Change in Mental Status Sepsis Action Taken by Nursing 09/23/22 12:09 09/23/22 12:09 09/23/22 12:15 Temperature Temperature Source Pulse Rate 56 L 56 L Pulse Rate [Right Finger] Pulse Rate from SpO2 Sensor 56 L 57 L Respiratory Rate 21 16 Respiratory Effort / Characteristics Respiratory Depth Blood Pressure 123/68 Blood Pressure [Right Arm] Blood Pressure Mean 86 Blood Pressure Mean [Right Arm] Pulse Oximetry 96 96 Oxygen Delivery Method Sepsis Recent Fever Within 48 Hours Sepsis New/Unexplained Change in Mental Status Sepsis Action Taken by Nursing 09/23/22 12:28 Temperature 37.4 C Temperature Source Oral Pulse Rate Pulse Rate [Right Finger] Pulse Rate from SpO2 Sensor Respiratory Rate Respiratory Effort / Characteristics Respiratory Depth Blood Pressure Blood Pressure [Right Arm] Blood Pressure Mean Blood Pressure Mean [Right Arm] Pulse Oximetry Oxygen Delivery Method Sepsis Recent Fever Within 48 Hours Sepsis New/Unexplained Change in Mental Status Sepsis Action Taken by Nursing Laboratory Data 09/23/22 06:27 09/23/22 06:27 Lab Results 09/23/22 09/23/22 09/23/22 Range/Units 06:27 06:27 06:27 WBC 7.80 (4.8-10.8) K/ul RBC 4.98 (4.20-5.40) M/uL Hgb 14.1 (12.0-16.0) g/dl Hct 41.4 (37.0-47.0) % MCV 83.1 (80.0-100.0) fL MCH 28.3 (25.0-34.0) pg MCHC 34.1 (32.0-36.0) g/dL RDW Std Deviation 40.1 (36.4-46.3) fL RDW Coeff of Quint[place] 13.3 (11.5-14.5) % Plt Count 261 (130-400) K/uL MPV 10.0 (9.4-12.4) fL Immature Gran % (Auto) 0.3 % Neut % (Auto) 64.8 % Lymph % (Auto) 26.2 % [place] % (Auto) 7.1 % Eos % (Auto) 1.2 % Baso % (Auto) 0.4 % Neut # (Auto) 5.07 (1.40-6.50) K/uL Lymph # (Auto) 2.04 (1.2-3.4) K/uL [place] # (Auto) 0.55 (0.11-0.59) K/uL Eos # (Auto) 0.09 (0-0.50) K/uL Baso # (Auto) 0.03 (0-0.2) K/uL Immature Gran # (Auto) 0.02 (0.01-0.20) K/uL Sodium 137 (136-145) mmol/L Potassium 3.8 (3.5-5.1) mmol/L Chloride 106 (98-107) mmol/L Carbon Dioxide 22 (21-32) mmol/L Anion Gap 9 (3-11) BUN 9 (6-23) mg/dl Creatinine 0.83 (0.6-1.2) mg/dl Est Cr Clr Drug Dosing 111.4 ml/min Est GFR ( Amer) 109.7 ml/min Est GFR (Non-Af Amer) 94.6 ml/min BUN/Creatinine Ratio 10.8 (10-20) Glucose 78 (70-99(Fasting)) mg/dl Calcium 9.8 (8.6-10.3) mg/dl Total Bilirubin 1.1 H (0.2-1.0) mg/dl AST 13 (13-39) U/L ALT 10 (7-52) U/L Alkaline Phosphatase 59 (34-104) U/L Total Creatine Kinase 83 (26-192) U/L Total Protein 8.5 H (6.0-8.3) gm/dl Albumin 4.9 (3.4-5.0) gm/dl Globulin 3.6 (2.5-4.0) gm/dl Albumin/Globulin Ratio 1.4 (0.9-2) TSH 4.282 (0.300-4.500) uIu/ml Urine Color Urine Appearance (Clear) Urine pH (4.5-7.5) Ur Specific [place] (1.000-1.030) Urine Protein (Negative) Urine Glucose (UA) (Negative) Urine Ketones (Negative) Urine Blood (Negative) Urine Nitrite (Negative) Urine Bilirubin (Negative) Urine Urobilinogen (Negative) Ur Leukocyte Esterase (Negative) Urine RBC (0-4) /hpf Urine WBC (0-5) /hpf Ur Epithelial Cells (0-5) /lpf Urine Bacteria (Negative) Hyaline Casts (0-5) /lpf Salicylates (3.0-30) mg/dl Acetaminophen (10-30) ug/ml Ethyl Alcohol mg/dL (<10.0) mg/dl 09/23/22 09/23/22 09/23/22 Range/Units 06:27 06:27 11:59 WBC (4.8-10.8) K/ul RBC (4.20-5.40) M/uL Hgb (12.0-16.0) g/dl Hct (37.0-47.0) % MCV (80.0-100.0) fL MCH (25.0-34.0) pg MCHC (32.0-36.0) g/dL RDW Std Deviation (36.4-46.3) fL RDW Coeff of [place] (11.5-14.5) % Plt Count (130-400) K/uL MPV (9.4-12.4) fL Immature Gran % (Auto) % Neut % (Auto) % Lymph % (Auto) % [place] % (Auto) % Eos % (Auto) % Baso % (Auto) % Neut # (Auto) (1.40-6.50) K/uL Lymph # (Auto) (1.2-3.4) K/uL [place] # (Auto) (0.11-0.59) K/uL Eos # (Auto) (0-0.50) K/uL Baso # (Auto) (0-0.2) K/uL Immature Gran # (Auto) (0.01-0.20) K/uL Sodium (136-145) mmol/L Potassium (3.5-5.1) mmol/L Chloride (98-107) mmol/L Carbon Dioxide (21-32) mmol/L Anion Gap (3-11) BUN (6-23) mg/dl Creatinine (0.6-1.2) mg/dl Est Cr Clr Drug Dosing ml/min Est GFR ( Amer) ml/min Est GFR (Non-Af Amer) ml/min BUN/Creatinine Ratio (10-20) Glucose (70-99(Fasting)) mg/dl Calcium (8.6-10.3) mg/dl Total Bilirubin (0.2-1.0) mg/dl AST (13-39) U/L ALT (7-52) U/L Alkaline Phosphatase (34-104) U/L Total Creatine Kinase (26-192) U/L Total Protein (6.0-8.3) gm/dl Albumin (3.4-5.0) gm/dl Globulin (2.5-4.0) gm/dl Albumin/Globulin Ratio (0.9-2) TSH (0.300-4.500) uIu/ml Urine Color Red Urine Appearance Cloudy A (Clear) Urine pH 7.5 (4.5-7.5) Ur Specific [place] 1.015 (1.000-1.030) Urine Protein 3+ H (Negative) Urine Glucose (UA) Negative (Negative) Urine Ketones Negative (Negative) Urine Blood 3+ H (Negative) Urine Nitrite Positive A (Negative) Urine Bilirubin Negative (Negative) Urine Urobilinogen Negative (Negative) Ur Leukocyte Esterase Trace H (Negative) Urine RBC >30 H (0-4) /hpf Urine WBC >30 H (0-5) /hpf Ur Epithelial Cells >30 H (0-5) /lpf Urine Bacteria Negative (Negative) Hyaline Casts 0-5 (0-5) /lpf Salicylates < 3.0 L (3.0-30) mg/dl Acetaminophen < 3 L (10-30) ug/ml Ethyl Alcohol mg/dL < 10.0 (<10.0) mg/dl Administered Medications Discontinued Medications Sodium Chloride (Nss 1000ml) 1,000 mls @ 999 mls/hr IV .Q1H1M ONE Stop: 09/23/22 07:19 Last Infusion: 09/23/22 07:28 Dose: 0 mls/hr Documented By: Admin: 09/23/22 06:27 Dose: 999 mls/hr Documented By: PRACHI Lorazepam (Lorazepam 2 Mg/1 Ml Vial) Confirm Administered Dose 2 mg .ROUTE .STK- MED ONE Stop: 09/23/22 06:14 Last Admin: 09/23/22 06:22 Dose: 2 mg Documented By: THIERRYF Imaging Data Radiologist's Impression: Chest X-Ray 09/23/22 06:28 XR chest 1V portable CLINICAL HISTORY: overdose TECHNIQUE: Single frontal radiograph of the chest was obtained. Comparison: Comparison is made to CT head 07/13/2022 FINDINGS: No lines and tubes are seen. The cardiomediastinal silhouette is normal. Lungs are underinflated but clear. No evidence of pleural effusion or pneumothorax. IMPRESSION: No acute chest disease. ACT 112: Negative or not required by law. Electronically signed by: Mesfin Rollins M.D. 09/23/2022 10:41 AM Discharge Plan Visit Data Chief Complaint: Overdose (Intentional) Stated Complaint: OVERDOSE ED Provider: Andrea Colindres Discharge Problem: Suicide attempt by drug overdose, Episode of shaking Forms Stand Alone Forms: [facility], [facility], Suicide Prevention Resources Prescriptions Prescriptions: No Action sumatriptan succinate 50 mg Tablet 0 mg PO .COMPLEX Rx Instructions: take 1 tab at onset of headache; if no relief may repeat 1 tab after at least 2 hrs; max = 4 tabs/24 hr topiramate 25 mg Capsule,Extended Release 24hr 25 mg PO DAILY levetiracetam [Keppra] 500 mg tablet 750 mg PO BID Referrals Referrals: PCP,NO [Primary Care Provider] -
[2022-09-23 06:55] LABS: Basophils # (auto) 0.03 K/uL (0-0.2); Basophils % (auto) 0.4 %; Eosinophils # (auto) 0.09 K/uL (0-0.50); Eosinophils % (auto) 1.2 %; Hematocrit (blood only) 41.4 % (37.0-47.0); Hemoglobin 14.1 g/dl (12.0-16.0); Immature Granulocytes # (auto) 0.02 K/uL (0.01-0.20); Immature Granulocytes % (auto) 0.3 %; Lymphocytes # (auto) 2.04 K/uL (1.2-3.4); Lymphocytes % (auto) 26.2 %; Mean Corpuscular Hemoglobin 28.3 pg (25.0-34.0); Mean Corpuscular Hgb Conc 34.1 g/dL (32.0-36.0); Mean Corpuscular Volume 83.1 fL (80.0-100.0); Monocytes # (auto) 0.55 K/uL (0.11-0.59); Monocytes % (auto) 7.1 %; Neutrophils # (auto) 5.07 K/uL (1.40-6.50); Neutrophils % (auto) 64.8 %; Platelet Count 261 K/uL (130-400); RDW Coefficient of Variation 13.3 % (11.5-14.5); RDW Standard Deviation 40.1 fL (36.4-46.3); Red Blood Count 4.98 M/uL (4.20-5.40)
[2022-09-23 07:10] LABS: Albumin Globulin Ratio 1.4 (0.9-2); Albumin Level 4.9 gm/dl (3.4-5.0); BUN Creatinine Ratio 10.8 (10-20); Bilirubin,Total 1.1 mg/dl (0.2-1.0); Calcium 9.8 mg/dl (8.6-10.3); Creatinine Clr Calc Pharmacy 111.4 ml/min; Est GFR (African American) 109.7 ml/min; Est GFR (Non-African American) 94.6 ml/min; Globulin 3.6 gm/dl (2.5-4.0); Potassium 3.8 mmol/L (3.5-5.1); Total Protein 8.5 gm/dl (6.0-8.3)
[2022-09-23 07:14] LABS: Acetaminophen < 3 ug/ml (10-30); Salicylate < 3.0 mg/dl (3.0-30)
--- NOTE | 2022-09-23 09:44 | History & Physical Report ---
Date of Service September 23, 2022 Assessment & Plan (1) Suicide attempt by drug overdose: Plan: Supportive care. Continue IV fluids. Behavioral health assessment (2) Psychiatric illness: Plan: Behavioral health assessment (3) Seizure disorder: Plan: She takes Keppra and topiramate as an outpatient. These apparently were her overdose medications. They are currently on hold Plan Anticipate eventual discharge to inpatient psychiatric facility. History of Present Illness Chief Complaint: Suicide attempt Primary Care Provider: NO PCP 32-year-old female with a previous psychiatric history who took an intentional overdose of Keppra and topiramate. She was seen in the ED and vital signs are stable. Behavioral health evaluation is pending. She will be admitted to telemetry bed on the medical floor with one-to-one supervision Allergies Allergy/AdvReac Type Severity Reaction Status Date / Time [place] And Derivatives Allergy Hives & gi Verified 09/02/22 21:37 upset Home Medications Medication Instructions Recorded Confirmed Type levetiracetam 500 mg tablet 750 mg PO BID 09/02/22 09/02/22 History (Keppra) sumatriptan succinate 50 mg tablet 0 mg PO .COMPLEX 09/02/22 09/02/22 History topiramate 25 mg capsule,extended 25 mg PO DAILY 09/02/22 09/02/22 History release 24 hr Past Med/Surg History Medical History (Updated 09/23/22 @ 09:43 by Kalpesh Azul MD) Seizure disorder Social History Smoking Status: Unknown if ever smoked Hx Substance Use: Yes Last Used Substance: Unknown Substance Use Type Other:: unknown Preferred Language: Polish Communication Ability: Unable Historic Interpreter Required: No Beliefs That Will Affect Care: None Feels Safe at Home: Yes Assistive Devices: None Review of Systems Review of Systems: The patient is currently sleeping and unable to answer any questions regarding review of systems Physical Exam Physical Exam: General-sleeping after being given lorazepam in the ED. No fever HEENT-head atraumatic and normocephalic Neck-no lymphadenopathy or thyromegaly, trachea midline Chest-clear to auscultation anteriorly. No rales , wheezing or rhonchi Cardiac-regular rate and rhythm, normal S1 and S2 Abdomen-normal bowel sounds, nontender, no hepatosplenomegaly Extremities-no cyanosis, clubbing, or edema Neuro-sleeping. Unable to assess Psych-sleeping. Unable to assess Results & Data Results & Data Vital Signs (Past 12 Hours) Vital Signs Pulse Pulse Resp BP BP Pulse Ox O2 Del Method 09/23/22 09:00 54 L 14 105/53 L 98 Room Air 09/23/22 07:26 18 94/52 L 97 Room Air 09/23/22 07:00 57 L 15 97/52 L 99 Room Air 09/23/22 07:00 62 14 103/70 99 Room Air 09/23/22 06:45 57 L 14 92/60 L 97 Room Air 09/23/22 06:31 74 23 111/69 96 Room Air 09/23/22 06:26 64 24 115/79 100 Room Air 09/23/22 06:15 61 21 146/63 H 100 Room Air 09/23/22 06:27 78 09/23/22 06:11 81 26 H 146/63 H 100 Room Air Laboratory Results 09/23/22 06:27 09/23/22 06:27 PG Care Time/CCT Total # of Minutes Spent Total Time Spent with Patient: Total time spent is greater than 50% in coordination of care (as documented) at patient's floor/unit and/or counseling patient: Coding Level of Care Code 97951 INT INP/OBS CARE 3/75MIN Diagnoses Suicide attempt by drug overdose T50.902A Psychiatric illness F99 Seizure disorder G40.909
--- NOTE | 2022-09-23 10:43 | XRay Report ---
XR chest 1V portable CLINICAL HISTORY: overdose TECHNIQUE: Single frontal radiograph of the chest was obtained. Comparison: Comparison is made to CT head 07/13/2022 FINDINGS: No lines and tubes are seen. The cardiomediastinal silhouette is normal. Lungs are underinflated but clear. No evidence of pleural effusion or pneumothorax. IMPRESSION: No acute chest disease. ACT 112: Negative or not required by law. Electronically signed by: Mesfin Rollins M.D. 09/23/2022 10:41 AM
--- NOTE | 2022-09-23 11:50 | Electrocardiogram Report ---
Test Reason : Blood Pressure : / mmHG Vent. Rate : 075 BPM Atrial Rate : 075 BPM P-R Int : 152 ms QRS Dur : 074 ms QT Int : 400 ms P-R-T Axes : 044 051 070 degrees QTc Int : 446 ms Normal sinus rhythm with sinus arrhythmia Nonspecific ST abnormality Abnormal ECG When compared with ECG of 02-SEP-2022 20:28, No significant change was found Confirmed by Petar Benton ([id number]) on 09/23/2022 11:49:56 AM Referred By: Confirmed By:Petar Benton
[2022-09-23 12:36] LABS: Appearance Urine Cloudy (Clear); Bilirubin Urine Negative (Negative); Blood Urine 3+ (Negative); Color Urine Red; Glucose Urine UA Negative (Negative); Ketones Urine Negative (Negative); Leukocyte Esterase Urine Trace (Negative); Nitrite Urine Positive (Negative); Protein Urine 3+ (Negative); Specific Gravity Urine 1.015 (1.000-1.030); Urobilinogen Urine Negative (Negative); pH Urine 7.5 (4.5-7.5)
[2022-09-23 12:40] LABS: Bacteria Urine Negative (Negative); Epithelial Cell Urine >30 /lpf (0-5); Hyaline Casts Urine 0-5 /lpf (0-5); RBC Urine >30 /hpf (0-4); WBC Urine >30 /hpf (0-5)
[2022-09-23 13:01] LABS: Amphetamines+Metham, Urine Neg (Neg); Barbiturates, Urine Neg (Neg); Benzodiazepine, Urine Neg (Neg); Cocaine, Urine Neg (Neg); MDMA (Ecstacy), Urine Neg (Neg); Methadone, Urine Neg (Neg); Opiate, Urine Neg (Neg); Phencyclidine, Urine Neg (Neg)
[2022-09-23] MEDS ORDERED: ACETAMINOPHEN 325 MG TAB PO PRN (15:59)
[2022-09-23] MEDS ORDERED: ONDANSETRON INJ 2 MG/ML 2 ML VIAL IV PRN (15:59)
[2022-09-23] MEDS: SODIUM CHLORIDE 0.9% 1000ML 1,000 ML IV SCH (17:44)
[2022-09-24] MEDS: SODIUM CHLORIDE 0.9% 1000ML 1,000 ML IV SCH (04:59)
[2022-09-24] MEDS ORDERED: LORazepam 2 MG/1 ML VIAL IV STA (09:44)
[2022-09-24] MEDS ORDERED: LORazepam 2 MG/1 ML VIAL IV PRN (09:48)
[2022-09-24] MEDS ORDERED: cefTRIAXone SODIUM 2,000 MG in DEXTROSE 5% 50 ML IV SCH (11:00)
[2022-09-24] MEDS: D5NSS + 20MEQ KCL 20 MEQ/1,000 ML BAG IV SCH (12:11)
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
--- NOTE | 2022-09-24 17:37 | XRay Report ---
XR foot RT min 3V routine HISTORY: 32 years-old Female 1st metatarsal pain, injury; eval fracture acute right foot pain status post trauma COMPARISON: None TECHNIQUE: 3 views of the right foot FINDINGS: Type I accessory navicular. No acute fracture, dislocation or opaque foreign body identified. IMPRESSION: No acute fracture or dislocation identified. ACT 112: Negative or not required by law. The above report was generated using voice recognition software. It may contain grammatical, syntax o r spelling errors. Electronically signed by: Wicho Schwab M.D. 09/24/2022 5:36 PM
--- NOTE | 2022-09-24 19:25 | Hospitalist Progress Note ---
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 Patient reports mood changes with keppra. She does not want to resume the keppra. The topamax is really for chronic headaches. Spoke informally with neurology - can use lamictal or oxcarbazepine for seizure prophylaxis. of note - some of the pt's prior seizure-like events have been felt to be non- epileptic. a prolonged video EEG would be ideal but would have to be [facility]. if lamictal is used - start 25mg BID, then increase to 50mg BID after 1 week. if psychiatry is ok with lamictal will go with such. of note - EEG was obtained earlier today - NO SEIZURE focus seen. 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 (4) Bipolar disorder: Plan: defer Rx to psych, but potentially could use lamictal as mood stabilizer for such along with Rx of seizures (5) UTI (urinary tract infection): Plan: 2nd GNR add rocephin 2gm IV daily while awaiting final culture (6) Right foot pain: Plan: check x-rays, r/o fracture if negative for such could have tendon injury (ant tibialis tendon, etc) if negative consider voltaren gel qid (7) Hypokalemia: Plan: low K during prior hospital stay normal this admission (8) Acute encephalopathy: Plan: toxic- from medication overdose (topamax + keppra) improved Plan patient cannot leave AMA continue 1:1 observation will need inpatient psychiatric Rx cont IV fluids for now but can d/c them later tonight if taking adequate PO care d/w psych care discussed informally with neurology Admission and Anticipated Discharge Date Admission Date: September 23, 2022 Subjective tele overnight wnl overnight and this am the patient was very sedated/lethargic, only briefly opening eyes during that time period staff noted jaw jerking and seizure-type movements during her sleep EEG was obtained - no seizure focus seen this afternoon the patient awoke and was alert/oriented during my visit she had multiple complaints - * lactating from both breasts present since pre-teen years? * saw endocrinology in [place] for such but never completed a full work-up * galactorrhea is b/l, white discharge, no blood * right foot pain - fell out of her 's care traveling [place]?; pain is medial aspect * post- depression since child was born 1 year ago * recurrent UTIs Review of Systems Review of Systems: gen - no fevers cv - no chest pain pulm - no dyspnea GI - no abd pain Physical Exam Physical Exam: gen - awake, alert; depressed/flat affect mouth - MMM neck - no JVD heart - RRR, s1 s2, no murmur lungs - CTA b/l abd - soft NT ND BS+ breasts - exam deferred ext - no edema, pulses 2+ b/l musculo - right foot - tender over 1st metatarsal to palpation; abrasion present on heel; no deformity; mildly tender over anterior tibialis tendon psych - flat affect Results & Data Results & Data Vital Signs (Past 12 Hours) Vital Signs Temp Pulse Pulse Resp BP BP Pulse Ox 09/24/22 16:13 63 09/24/22 12:28 58 L 09/24/22 11:57 37.3 C 57 L 19 117/79 97 09/24/22 07:56 36.9 C 62 18 146/101 H 100 O2 Del Method 09/24/22 16:13 09/24/22 12:28 09/24/22 11:57 Room Air 09/24/22 07:56 Room Air Laboratory Results Laboratory Results - last 24 hr 09/24/22 11:02 POC Glucose 77 PG Care Time/CCT Total # of Minutes Spent Total Time Spent with Patient: Total time spent is greater than 50% in coordination of care (as documented) at patient's floor/unit and/or counseling patient: Coding Level of Care Code 81460 SUB INP/OBS CARE 3/50MIN Diagnoses Suicide attempt by drug overdose T50.902A Seizure disorder G40.909 Galactorrhea N64.3 Bipolar disorder F31.9 UTI (urinary tract infection) N39.0 Right foot pain M79.671 Hypokalemia E87.6 Acute encephalopathy G93.40
--- NOTE | 2022-09-24 19:51 | Electroencephalogram ---
EEG Procedure Note Date of Service September 24, 2022 Start / End Times Start Time: 1:57 PM End Time: 2:17 PM Referring Physician Marlen History Seizure-like activity Home Medication List Medication Instructions Recorded Confirmed Type levetiracetam 500 mg tablet 750 mg PO BID 09/02/22 09/02/22 History (Keppra) sumatriptan succinate 50 mg tablet 0 mg PO .COMPLEX 09/02/22 09/02/22 History topiramate 25 mg capsule,extended 25 mg PO DAILY 09/02/22 09/02/22 History release 24 hr Inpatient Medication List Ceftriaxone Sodium 2,000 mg/ (Dextrose) 70 mls @ 100 mls/hr IV Q24H [facility]; Protocol Stop: 09/29/22 10:59 Last Infusion: 09/24/22 12:11 Dose: 0 mls/hr Documented By: Admin: 09/24/22 11:25 Dose: 100 mls/hr Documented By: JEYSON Potassium Chloride/Dextrose/Sod Cl (D5nss + 20meq Kcl) 20 meq in 1,000 mls @ 75 mls/hr IV .[id number] [facility]; Protocol Stop: 10/24/22 11:29 Last Admin: 09/24/22 12:11 Dose: 75 mls/hr Documented By: JEYSON Discontinued Medications Sodium Chloride (Nss 1000ml) 1,000 mls @ 999 mls/hr IV .Q1H1M [facility] Stop: 09/23/22 07:19 Last Infusion: 09/23/22 07:28 Dose: 0 mls/hr Documented By: Admin: 09/23/22 06:27 Dose: 999 mls/hr Documented By: PRACHI Sodium Chloride (Nss 1000ml) 1,000 mls @ 80 mls/hr IV .[id number] [facility] Stop: 10/23/22 15:58 Last Infusion: 09/24/22 12:17 Dose: 0 mls/hr Documented By: Admin: 09/24/22 04:59 Dose: 80 mls/hr Documented By: Infusion: 09/24/22 04:59 Dose: 80 mls/hr Documented By: Admin: 09/23/22 17:44 Dose: 80 mls/hr Documented By: JEYSON Lorazepam (Lorazepam 2 Mg/1 Ml Vial) Confirm Administered Dose 2 mg .ROUTE .STK- MED ONE Stop: 09/23/22 06:14 Last Admin: 09/23/22 06:22 Dose: 2 mg Documented By: PIOTR Lorazepam (Lorazepam 2 Mg/1 Ml Vial) 0.5 mg IV NOW STA Stop: 09/24/22 09:45 Last Admin: 09/24/22 10:21 Dose: Not Given Documented By: JEYSON Description This is a 21 electrode EEG with a single channel dedicated to limited EKG. The electrodes were placed in accordance with the International 10-20 system. There is a posterior dominant rhythm of 9 Hz which is symmetrically distributed and attenuates with eye opening. There is a normal anterior to posterior organization. Photic stimulation is unremarkable. Hyperventilation is not performed. There is a symmetric frontal beta rhythm. There is occasional 2.5 to 3.5 Hz frontal intermittent rhythmic delta activity. There is occasional movement artifact. There are no epileptiform abnormalities. Interpretation Borderline abnormal EEG with evidence of a mild nonspecific encephalopathy due to the presence of occasional frontal intermittent rhythmic delta activity. Otherwise, the background rhythm is normal. There are no epileptiform abnormalities. [facility] EEG Procedure Codes Indication for Procedure (1) Seizure disorder: Neurology Neurology: 15204 EEG include record awake & drowsy
[2022-09-24] MEDS: DICLOFENAC SOD 1% GEL 100 GM TUBE EXT SCH (21:19)
[2022-09-25] MEDS: D5NSS + 20MEQ KCL 20 MEQ/1,000 ML BAG IV SCH (00:23)
[2022-09-25 08:14] LABS: BUN Creatinine Ratio 8.3 (10-20); Calcium 9.3 mg/dl (8.6-10.3); Creatinine Clr Calc Pharmacy 134.4 ml/min; Est GFR (African American) 130.2 ml/min; Est GFR (Non-African American) 112.4 ml/min; Potassium 3.5 mmol/L (3.5-5.1)
[2022-09-25] MEDS ORDERED: FOSFOMYCIN TROMETHAMINE 3 GM PACKET PO SCH (09:00)
[2022-09-25] MEDS: DICLOFENAC SOD 1% GEL 100 GM TUBE EXT SCH ×4 (10:19→21:51)
[2022-09-25] MEDS: lamoTRIgine 25 MG TAB PO SCH ×2 (13:32→21:52)
--- NOTE | 2022-09-25 13:32 | Hospitalist Progress Note ---
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 Patient reports mood changes with keppra. She does not want to resume the keppra. The topamax is really for chronic headaches. Spoke informally with neurology - can use lamictal or oxcarbazepine for seizure prophylaxis. of note - some of the pt's prior seizure-like events have been felt to be non- epileptic. a prolonged video EEG would be ideal but would have to be arranged via [facility] or [facility]. EEG here was negative for seizure focus (EEG was done shortly after seizure-like activity yesterday). plan to start lamictal 25mg BID, then increase to 50mg BID after 1 week. psych agrees with lamictal - this will also act as mood stabilizer. 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 (4) Bipolar disorder: Plan: starting lamictal for seizures (or non-epileptiform events) and her bipolar (5) UTI (urinary tract infection): Plan: 2nd ESBL e.coli uncomplicated stop rocephin fosfomycin 3000mg PO x 1 (6) Right foot pain: Plan: x-rays neg for fracture voltaren gel QID may have tendon injury from recent fall (7) Hypokalemia: Plan: low K during prior hospital stay normal this admission (8) Acute encephalopathy: Plan: toxic- from medication overdose (topamax + keppra) metabolic otherwise Plan cont 1:1 updated by phone this evening care d/w psych early in the day Admission and Anticipated Discharge Date Admission Date: September 23, 2022 Subjective no issues overnight went for MRI brain this am apparently while in the MRI machine she was lethargic after getting out of the MRI machine she was having seizure-like activity - lips smacking, arm shaking, etc upon arrival back to the floor she was having similar movements I came to the bedside She was lying prone in the bed She was moaning, smacking her lips, rolling in the bed When I started to talk with her she was able to open eyes and answer questions but it was very hard to hear her speech her speech initially was dysarthric, then became more clear after a few minutes she reported having a headache and stated "no one is doing anything for it" I did tell her that her nurtec was dropped off by her and we would give it to her it was very hard to otherwise communicate with her - she said she wanted to sleep Review of Systems Review of Systems: Unobtainable due to cognitive status Physical Exam Physical Exam: gen - groggy but able to follow commands and answer basic questions mouth - MMM neck - no JVD heart - RRR, s1 s2, no murmur lungs - CTA b/l abd - soft NT ND BS+ ext - no edema, pulses 2+ b/l neuro - no facial droop; strength 5/5 x 4 exts; facial/lip smacking resolved and arm movements resolved while I was in the room Results & Data Results & Data Vital Signs (Past 12 Hours) Vital Signs Temp Pulse Resp BP BP Pulse Ox O2 Del Method 09/25/22 13:27 36.3 C L 61 20 140/83 96 Room Air 09/25/22 07:16 36.7 C 74 18 138/83 95 Room Air 09/25/22 04:00 36.7 C 76 18 125/75 97 Room Air Laboratory Results Laboratory Results - last 24 hr 09/23/22 09/25/22 09/25/22 11:59 Unknown Unknown Urine Opiates Screen Neg Ur Methadone, Qual Neg Urine Barbiturates Neg Ur Phencyclidine (PCP) Neg U Amphetamin/Meth Scrn Neg MDMA (Ecstasy) Screen Neg U Benzodiazepines Scrn Neg Ur Cocaine Metabolite Neg U Marijuana (THC) Screen Pos H U Marijuana THC Carboxy 80 H Pending Drug Screen Comment SEE NOTE Pending Diagnostic Findings Brain MRI 09/25/22 10:31 MR brain wo con CLINICAL HISTORY: lactating, seizures; eval pituitary adenoma, etc TECHNIQUE: Multiplanar and multisequence MR images of the brain were obtained without intravenous contrast. Comparison: None available at the time of this dictation. FINDINGS: Exam is limited by patient motion. No abnormal restricted diffusion is identified. The white matter is unremarkable. The ventricular system is normal in appearance. No mass is seen. There is no mass effect or midline shift. There is no evidence of acute intraparenchymal hemorrhage. No extra axial fluid collections are seen. The corpus callosum, pituitary gland, and cerebellar tonsils appear grossly unremarkable. Flow voids of the major intracranial arterial vessels are identified. The imaged portions of the paranasal sinuses, mastoid air cells, and orbits are unremarkable. IMPRESSION: No acute abnormalities. ACT 112: Negative or not required by law. Electronically signed by: Mesfin Rollins M.D. 09/25/2022 1:35 PM PG Care Time/CCT Total # of Minutes Spent Total Time Spent with Patient: Total time spent is greater than 50% in coordination of care (as documented) at patient's floor/unit and/or counseling patient: Coding Level of Care Code 44805 SUB INP/OBS CARE 3/50MIN Diagnoses Suicide attempt by drug overdose T50.902A Seizure disorder G40.909 Galactorrhea N64.3 Bipolar disorder F31.9 UTI (urinary tract infection) N39.0 Right foot pain M79.671 Hypokalemia E87.6 Acute encephalopathy G93.40
--- NOTE | 2022-09-25 13:36 | Magnetic Resonance Report ---
MR brain wo con CLINICAL HISTORY: lactating, seizures; eval pituitary adenoma, etc TECHNIQUE: Multiplanar and multisequence MR images of the brain were obtained without intravenous con trast. Comparison: None available at the time of this dictation. FINDINGS: Exam is limited by patient motion. No abnormal restricted diffusion is identified. The white matter i s unremarkable. The ventricular system is normal in appearance. No mass is seen. There is no mass eff ect or midline shift. There is no evidence of acute intraparenchymal hemorrhage. No extra axial fluid collections are seen. The corpus callosum, pituitary gland, and cerebellar tonsils appear grossly un remarkable. Flow voids of the major intracranial arterial vessels are identified. The imaged portions of the para nasal sinuses, mastoid air cells, and orbits are unremarkable. IMPRESSION: No acute abnormalities. ACT 112: Negative or not required by law. Electronically signed by: Mesfin Rollins M.D. 09/25/2022 1:35 PM
[2022-09-25] MEDS ORDERED: RIMEGEPANT SULFATE 75 MG OD TAB PO PRN (13:45)
[2022-09-25 19:07] LABS: Amphetamines+Metham, Urine Neg (Neg); Barbiturates, Urine Neg (Neg); Benzodiazepine, Urine Neg (Neg); Cocaine, Urine Neg (Neg); MDMA (Ecstacy), Urine Neg (Neg); Methadone, Urine Neg (Neg); Opiate, Urine Neg (Neg); Phencyclidine, Urine Neg (Neg)
[2022-09-25] MEDS: NICOTINE 14 MG/24 HR PATCH TD SCH (21:52)
[2022-09-26 07:53] LABS: Marijuana Quant, GCMS Urine 80 ng/mL (<5)
[2022-09-26] MEDS: DICLOFENAC SOD 1% GEL 100 GM TUBE EXT SCH ×3 (07:58→16:29)
[2022-09-26] MEDS: NICOTINE 14 MG/24 HR PATCH TD SCH (07:59)
[2022-09-26] MEDS: lamoTRIgine 25 MG TAB PO SCH ×2 (07:59→17:18)
[2022-09-26 09:34] LABS: Pregnancy Test, Serum Negative (Negative)
[2022-09-26 09:39] LABS: BUN Creatinine Ratio 8.6 (10-20); Calcium 9.2 mg/dl (8.6-10.3); Creatinine Clr Calc Pharmacy 137.9 ml/min; Est GFR (African American) 134.8 ml/min; Est GFR (Non-African American) 116.3 ml/min; Potassium 3.9 mmol/L (3.5-5.1)
--- NOTE | 2022-09-26 10:34 | Communication Note ---
Date of Service: September 26, [address] Rosen as does not support ongoing confinement in the hospital/psychiatric unit. He and patient have been interacting appro priately and primarily brought her here due to what seem to be afteraffects of polysubstance ingestion rather than any ongoing SI. Unclear how much of her medication she took from old scripts but patient is clear that will never take Keppra again for any indication. She also attributes the SI to her PMDD (menses). She has a strong personality overlay and has made statements that she won't be giving up drugs or go to rehab. Although she initially expressed willingness to sign in, she does not plan to fully engage in treatment but saw it as "whatever is the fastest way out of here" and would likely sign out precipitously. Although there are commitment criteria, must also way the risks/benefits of treatment. Acute inpatient hospitalization does little to mitigate risks of repeat SIB for patients with borderline personality disorder. Her main support system does not support ongoing involuntary inpatient hospitalization. Her pseudoseizures yesterday, in my opinion, were a stress response to anticipation of ongoing hospitalization. [place] mental health law does not allow commitment to rehab and she actually has more established medical care in her home state. Dr. Rosen is in agreement with this assessment.
[2022-09-26] MEDS ORDERED: FLUCONAZOLE 50 MG TAB PO STA (16:52)
--- NOTE | 2022-09-26 17:12 | Discharge Summary ---
Date of Service September 26, 2022 Admission HPI Per Admitting Provider 32-year-old female with a previous psychiatric history who took an intentional overdose of Keppra and topiramate. She was seen in the ED and vital signs are stable. Behavioral health evaluation is pending. She will be admitted to telemetry bed on the medical floor with one-to-one supervision Discharge Exam gen - groggy but able to follow commands and answer basic questions mouth - MMM neck - no JVD heart - RRR, s1 s2, no murmur lungs - CTA b/l abd - soft NT ND BS+ ext - no edema, pulses 2+ b/l neuro - no facial droop; strength 5/5 x 4 exts; facial/lip smacking resolved and arm movements resolved while I was in the room Discharge Data Allergies Allergy/AdvReac Type Severity Reaction Status Date / Time Altha And Derivatives Allergy Hives & gi Verified 09/02/22 21:37 upset Consultations 09/23/22 08:05 ED Decision to Admit Stat 09/23/22 17:08 Consult Psychiatry Routine 09/26/22 07:35 Burn CD for patient Routine Ordered Studies 09/25/22 10:31 MR brain wo con Routine Hospital Course (1) Suicide attempt by drug overdose: uncertain amount of topamax + keppra both have been discontinued patient remains 1:1 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 Patient reports mood changes with keppra. She does not want to resume the keppra. The topamax is really for chronic headaches. Spoke informally with neurology - can use lamictal or oxcarbazepine for seizure prophylaxis. of note - some of the pt's prior seizure-like events have been felt to be non- epileptic. a prolonged video EEG would be ideal but would have to be arranged via [facility] or [facility]. EEG here was negative for seizure focus (EEG was done shortly after seizure-like activity yesterday). plan to start lamictal 25mg BID, then increase to 50mg BID after 1 week. psych agrees with lamictal - this will also act as mood stabilizer. will need to f/u with neurology in [place] today's events likely non-epileptiform activity rather than true epileptic ev ents (3) Galactorrhea: chronic prolactin level wnl TSH and Free T4 normal MRI of the pituitary without adenoma if the w/u above is negative her galactorrhea could be from prior bipolar medications could be idiopathic will need urogynecology physician f/u in her home state (4) Bipolar disorder: starting lamictal for seizures (or non-epileptiform events) and her bipolar (5) UTI (urinary tract infection): 2nd ESBL e.coli uncomplicated stop rocephin fosfomycin 3000mg PO x 1 (6) Right foot pain: x-rays neg for fracture voltaren gel QID may have tendon injury from recent fall (7) Hypokalemia: low K during prior hospital stay normal this admission (8) Acute encephalopathy: toxic- from medication overdose (topamax + keppra) metabolic otherwise Plan cont 1:1 updated by phone this evening care d/w psych early in the day Discharge Plan Discharge Items Patient Disposition: Home - Self-Care Reason For Visit: Drug Overdose Discharge Diagnosis: 1. drug overdose 2. bipolar disorder 3. right foot pain - x rays negative for fracture; suspect tendon injury 4. galactorrhea (milk production from breasts) 5. seizures 6. urinary tract infection 7. vaginitis Activity: Resume your previous activity Non-emergency contact: Primary Care Provider and Neurologist Call non-emergency contact if: you have any medication questions, your symptoms worsen and you have a fever Follow-up/Referrals: PCP,NO [Primary Care Provider] - Diet: Regular Addtl Attending Provider Instructions: Ms Alexander, You were hospitalized for multiple issues including overdose, seizures, and urinary tract infection. We also addressed the other problems listed above in "discharge diagnoses." You were seen by [facility]. Psychiatry and neurology both felt you were a good candidate for lamictal (lamotrigine) to control your seizures; it will also help with your mood/bipolar. Your keppra and topamax have been discontinued. Recommendations - 1. starting 09/27/22 -- lamictal (lamotrigine) - * 1 tablet twice daily x 5 days, then - * increase to 2 tablets twice daily thereafter * the prescription will last you just under 2 weeks * please contact your neurologist right away upon return home to get a follow-up appointment * you will need refills and further dose increases by your neurologist * bring your CD with the MRI brain to your follow-up appointment 2. recurrent urinary tract infections - please obtain a new family doctor and ask for a referral to urology to investigate this problem. I would also recommend a repeat urine test in the next week to ensure the recent infection is fully resolved. 3. vaginitis and galactorrhea - establish care with a chain hooker to have a breast exam, pelvic exam, etc. 4. for your right foot pain - may use diclofenac gel 2 grams every 6 hours as needed for pain; this topical medication is [id number]. If this was a tendon injury the pain may last another 1-2 weeks. 5. stop your keppra 6. stop your topamax 7. please avoid use of recreational drugs if at all possible as they can increase the risk of seizures, etc Return to any hospital if - * you have any thoughts of hurting yourself or anyone else * you have recurrent seizures * you are concerned about another urinary tract infection * you have symptoms of sky (staying up for multiple nights without sleep, mind racing, etc) * any other concerns Pending Studies at Discharge: No Stand-Alone Forms: My [employer], Smoking Cessation Medications and DC Order Prescriptions: New lamotrigine [Lamictal] 25 mg Tablet 25 mg PO DIRECTED Qty: 38 0RF Rx Instructions: 1 tablet twice daily x 5 days, then increase to 2 tablets twice daily. diclofenac sodium [Voltaren Arthritis Pain] 1 % Gel 2 g EXT QID PRN (Reason: right foot pain) Qty: 1 0RF Rx Instructions: can purchase [id number] Nurtec ODT 75 mg Tablet,Disintegrating 75 mg PO Q24H PRN (Reason: migraine headache) Qty: 1 0RF Rx Instructions: maximum 1 dose in 24 hours Discontinued sumatriptan succinate 50 mg Tablet 0 mg PO .COMPLEX Rx Instructions: take 1 tab at onset of headache; if no relief may repeat 1 tab after at least 2 hrs; max = 4 tabs/24 hr topiramate 25 mg Capsule,Extended Release 24hr 25 mg PO DAILY levetiracetam [Keppra] 500 mg tablet 750 mg PO BID Discharge Orders: Discharge Order (Routine); Ordered 09/26/22 Ordered By: Amado Rosen Admission Data Admit Date/Time: 09/23/22 09:40 Attending Provider: Amado Rosen Admit Provider: Kalpesh Azul Primary Care Provider: PCP,NO Other Providers: Jerson Matt ; Marcy Pichardo ; Natacha Baker ; Jose Calderón Coding Diagnoses Suicide attempt by drug overdose T50.902A Seizure disorder G40.909 Galactorrhea N64.3 Bipolar disorder F31.9 UTI (urinary tract infection) N39.0 Right foot pain M79.671 Hypokalemia E87.6 Acute encephalopathy G93.40
[2022-09-28 08:57] LABS: Marijuana Quant, GCMS Urine 99 ng/mL (<5)
== END 2022-09-26 18:00 | disposition home or self-care (01) | DRG 917 ==
LOC: ED 06:08 → SUATTDRO 09:40 → EDINP 09:40 → 2W 16:44